=== PATIENT | male | born 1940 | race Caucasian/White ===

== ENCOUNTER 2017-09-28 07:32 | Day surgery (SDC) | payer OTHER ==
[~2017-09-28] VITALS: Ht 167.6 cm; Wt 96.7 kg
[~2017-09-28 07:32] MED LIST: ASPI81CH PO; ASPI81EC PO; BUDE6HFA INH; CARV6.25 PO; CLON.1 PO; CLOP75 PO; FURO40 PO; GLIM2; GLIM2 PO; INSULANPEN SC; MAGNESIUM CHLORIDE 64 MG; METF500 PO; OLME20 PO; OMEP20ER PO; PIOG30 PO; POTCHL10ER PO; SIMV40 PO; TROSPIUM CHLORI20 MG PO
[2017-09-28] MEDS ORDERED: METF500C PO (08:09)
[2017-09-28] MEDS ORDERED: BICA50 (08:10)
[2017-09-28] MEDS ORDERED: POTA10T PO (08:10)
[2018-07-04] MEDS ORDERED: MAGOXI400 PO (10:57)
[2018-07-04] MEDS ORDERED: XTANDI40 MG PO (11:04)
[2018-07-05] MEDS ORDERED: ASPI81CH PO (13:27)
[2018-07-05] MEDS ORDERED: ATOR80 PO (13:31)
[2018-07-05] MEDS ORDERED: Humalog100 UNIT/1 SC (13:31)
== END 2017-09-28 09:26 | disposition home or self-care (01) ==
LOC: ORSCSDS 07:32
PROVIDERS: Ophthalmology
PROC: 08RK3JZ Replacement of Left Lens with Synthetic Substitute, Percutaneous Approach (ICD-10-PCS; principal; 2017-09-28 09:00)
DX: H25.12 Age-related nuclear cataract, left eye (principal); E11.9 Type 2 diabetes mellitus without complications; I10 Essential (primary) hypertension; J44.9 Chronic obstructive pulmonary disease, unspecified; Z79.01 Long term (current) use of anticoagulants; Z79.4 Long term (current) use of insulin; Z79.899 Other long term (current) drug therapy
CPT/HCPCS: 82947; J2250; J3010; J3301; V2632

== ENCOUNTER 2018-09-27 16:45 | Emergency (ER) | payer OTHER ==
[~2018-09-27] VITALS: Ht 167.6 cm; Wt 90.7 kg
[~2018-09-27 16:45] MED LIST changes: +ATOR80 PO; +BICA50; +Humalog100 UNIT/1 SC; +MAGOXI400 PO; +METF500C PO; +POTA10T PO; +XTANDI40 MG PO
[2018-09-27 17:32] LABS: BASOPHILS ABSOLUTE AUTO 0.05 K/mm3 (0.00-0.23); BASOPHILS PERCENT AUTO 1 % (0-2); EOSINOPHILS ABSOLUTE AUTO 0.35 K/mm3 (0.00-0.68); EOSINOPHILS PERCENT AUTO 4 % (0-6); Hematocrit 36.5 % (37.0-53.0); Hemoglobin 12.7 g/dL (13.5-17.5); IMMATURE GRAN ABSOLUTE AUTO 0.03 K/mm3 (0.00-0.10); IMMATURE GRAN PERCENT AUTO 0 % (0-1); LYMPHOCYTES ABSOLUTE AUTO 2.63 K/mm3 (0.84-5.20); LYMPHOCYTES PERCENT AUTO 29 % (21-46); MONOCYTES ABSOLUTE AUTO 0.68 K/mm3 (0.16-1.47); MONOCYTES PERCENT AUTO 8 % (4-13); Mean Corpuscular HGB 34.2 pg (26.0-34.0); Mean Corpuscular HGB Conc 34.8 g/dL (31.5-36.5); Mean Corpuscular Volume 98 fL (80-100); Mean Platelet Volume 11.6 fL (9.1-12.4); NEUTROPHILS ABSOLUTE AUTO 5.29 K/mm3 (1.96-9.15); NEUTROPHILS PERCENT AUTO 59 % (41-73); Platelet Count 303 K/mm3 (150-400); RDW Coefficient Variation 12.7 % (11.7-14.2); RDW Standard Deviation 45.6 fL (35.1-46.3); Red Blood Cell Count 3.71 M/mm3 (4.30-5.90); White Blood Cell Count 9.03 K/mm3 (4.00-11.30)
[2018-09-27 17:48] LABS: Albumin, Blood 3.3 g/dL (3.4-5.0); Albumin/Globulin Ratio 0.8 (0.8-1.8); Bilirubin, Total 0.4 mg/dL (0.1-1.0); Bun/Creatinine Ratio 18.6 (12.0-20.0); Calcium, Blood 8.7 mg/dL (8.5-10.1); Creatinine, Blood 1.29 mg/dL (0.60-1.20); Globulin, Blood 4.4 g/dL (2.2-4.0); Total Protein, Blood 7.7 g/dL (6.4-8.2)
[2018-09-27] MEDS ORDERED: SIMV40 PO (18:22)
[2018-09-27 19:21] LABS: Magnesium, Blood 1.9 mg/dL (1.6-2.4); Troponin I <0.015 ng/mL (0.000-0.040)
[2018-10-02 14:08] LABS: LYME IGG/IGM AB <0.91 ISR (0.00-0.90)
== END 2018-09-27 20:35 | disposition home or self-care (01) ==
LOC: ER 16:45
PROVIDERS: Emergency Medicine; Physician Assistant
DX: R20.2 Paresthesia of skin (principal); Z79.899 Other long term (current) drug therapy; Z79.4 Long term (current) use of insulin; Z79.82 Long term (current) use of aspirin; I10 Essential (primary) hypertension; E11.9 Type 2 diabetes mellitus without complications; E78.00 Pure hypercholesterolemia, unspecified; I25.10 Atherosclerotic heart disease of native coronary artery without angina pectoris; J45.909 Unspecified asthma, uncomplicated; Z87.891 Personal history of nicotine dependence; Z85.46 Personal history of malignant neoplasm of prostate
CPT/HCPCS: 36415; 70450; 80053; 83735; 84443; 84484; 85025; 86618; 99284-25

== ENCOUNTER → 2019-06-01 | Outpatient (CLI) | payer OTHER | END | disposition home or self-care (01) | LOC: LAB SHORT 08:30 → LAB 08:30 → EDSTATUS 05-29 09:40 → LAB FUT 05-29 09:40 | DX: J31.0 Chronic rhinitis (principal) | CPT/HCPCS: 86335 ==

== ENCOUNTER → 2019-07-17 | Outpatient (CLI) | payer OTHER ==
[~2019-07-17] MED LIST changes: +AMLO10 PO; -CARV6.25 PO; +Coreg12.5 MG PO; +FLUTICASONE-SA1 EAC2 INH; +LUPRON PO; +NASACORT10.8 ML NS; +Omega 3 1,0001 EACH PO
== END | disposition home or self-care (01) ==
LOC: LAB 11:48 → LAB SHORT 11:48
DX: J31.0 Chronic rhinitis (principal); H81.10 Benign paroxysmal vertigo, unspecified ear
CPT/HCPCS: 86335

== ENCOUNTER 2019-07-22 16:08 | Observation (INO) | payer OTHER ==
[~2019-07-22] VITALS: Ht 165.1 cm; Wt 89.4 kg
[~2019-07-22 16:08] MED LIST changes: -AMLO10 PO; -BUDE6HFA INH; -CLON.1 PO; -CLOP75 PO; -Coreg12.5 MG PO; -FLUTICASONE-SA1 EAC2 INH; -FURO40 PO; -GLIM2 PO; -Humalog100 UNIT/1 SC; -INSULANPEN SC; -LUPRON PO; -METF500C PO; -NASACORT10.8 ML NS; -OLME20 PO; -OMEP20ER PO; -Omega 3 1,0001 EACH PO; -POTA10T PO; -TROSPIUM CHLORI20 MG PO; -XTANDI40 MG PO
[2019-07-22 16:55] LABS: BASOPHILS ABSOLUTE AUTO 0.04 K/mm3 (0.00-0.23); BASOPHILS PERCENT AUTO 1 % (0-2); EOSINOPHILS ABSOLUTE AUTO 0.21 K/mm3 (0.00-0.68); EOSINOPHILS PERCENT AUTO 3 % (0-6); Hematocrit 33.9 % (37.0-53.0); Hemoglobin 11.6 g/dL (13.5-17.5); IMMATURE GRAN ABSOLUTE AUTO 0.03 K/mm3 (0.00-0.10); IMMATURE GRAN PERCENT AUTO 0 % (0-1); LYMPHOCYTES ABSOLUTE AUTO 2.12 K/mm3 (0.84-5.20); LYMPHOCYTES PERCENT AUTO 26 % (21-46); MONOCYTES ABSOLUTE AUTO 0.65 K/mm3 (0.16-1.47); MONOCYTES PERCENT AUTO 8 % (4-13); Mean Corpuscular HGB 33.9 pg (26.0-34.0); Mean Corpuscular HGB Conc 34.2 g/dL (31.5-36.5); Mean Corpuscular Volume 99 fL (80-100); Mean Platelet Volume 12.2 fL (9.1-12.4); NEUTROPHILS ABSOLUTE AUTO 4.98 K/mm3 (1.96-9.15); NEUTROPHILS PERCENT AUTO 62 % (41-73); Platelet Count 287 K/mm3 (150-400); RDW Coefficient Variation 12.6 % (11.7-14.2); RDW Standard Deviation 45.4 fL (35.1-46.3); Red Blood Cell Count 3.42 M/mm3 (4.30-5.90); White Blood Cell Count 8.03 K/mm3 (4.00-11.30)
[2019-07-22 17:09] LABS: International Normalized Ratio 0.95; Prothrombin Time Results 10.1 Sec (9.7-11.5)
[2019-07-22 17:13] LABS: Albumin, Blood 3.2 g/dL (3.4-5.0); Albumin/Globulin Ratio 0.7 (0.8-1.8); Bilirubin, Total 0.4 mg/dL (0.1-1.0); Bun/Creatinine Ratio 21.4 (12.0-20.0); Calcium, Blood 8.9 mg/dL (8.5-10.1); Creatinine, Blood 1.26 mg/dL (0.60-1.20); Globulin, Blood 4.4 g/dL (2.2-4.0); Potassium, Blood 4.1 mmol/L (3.5-5.5); Total Protein, Blood 7.6 g/dL (6.4-8.2)
[2019-07-22] MEDS ORDERED: CLON.1 PO (17:15)
[2019-07-22] MEDS ORDERED: OMEP20ER PO (17:16)
[2019-07-22] MEDS ORDERED: Coreg12.5 MG PO (17:16)
[2019-07-22] MEDS ORDERED: METF500C PO (17:17)
[2019-07-22] MEDS ORDERED: POTA10T PO (17:18)
[2019-07-22] MEDS ORDERED: OLME20 PO (17:19)
[2019-07-22] MEDS ORDERED: FURO40 PO (17:20)
[2019-07-22] MEDS ORDERED: GLIM2 PO (17:25)
[2019-07-22] MEDS ORDERED: BUDE6HFA INH (17:25)
[2019-07-22] MEDS ORDERED: INSULANPEN SC (17:26)
[2019-07-22] MEDS ORDERED: CLOP75 PO (17:26)
[2019-07-22] MEDS ORDERED: SIMV40 PO (17:27)
[2019-07-22] MEDS ORDERED: TROSPIUM CHLORI20 MG PO (17:27)
[2019-07-22] MEDS ORDERED: XTANDI40 MG PO (17:27)
[2019-07-22] MEDS ORDERED: Humalog100 UNIT/1 SC (17:30)
[2019-07-22] MEDS ORDERED: LUPRON PO (17:33)
[2019-07-22] MEDS ORDERED: Omega 3 1,0001 EACH PO (22:45)
[2019-07-22] MEDS ORDERED: NASACORT10.8 ML NS (22:49)
[2019-07-23 04:21] LABS: BASOPHILS ABSOLUTE AUTO 0.04 K/mm3 (0.00-0.23); BASOPHILS PERCENT AUTO 1 % (0-2); EOSINOPHILS ABSOLUTE AUTO 0.24 K/mm3 (0.00-0.68); EOSINOPHILS PERCENT AUTO 3 % (0-6); Hematocrit 30.3 % (37.0-53.0); Hemoglobin 10.3 g/dL (13.5-17.5); IMMATURE GRAN ABSOLUTE AUTO 0.03 K/mm3 (0.00-0.10); IMMATURE GRAN PERCENT AUTO 0 % (0-1); LYMPHOCYTES ABSOLUTE AUTO 2.66 K/mm3 (0.84-5.20); LYMPHOCYTES PERCENT AUTO 32 % (21-46); MONOCYTES PERCENT AUTO 8 % (4-13); Mean Corpuscular HGB 33.1 pg (26.0-34.0); Mean Corpuscular Volume 97 fL (80-100); Mean Platelet Volume 12.5 fL (9.1-12.4); NEUTROPHILS ABSOLUTE AUTO 4.66 K/mm3 (1.96-9.15); NEUTROPHILS PERCENT AUTO 56 % (41-73); Platelet Count 232 K/mm3 (150-400); RDW Coefficient Variation 12.5 % (11.7-14.2); RDW Standard Deviation 43.9 fL (35.1-46.3); Red Blood Cell Count 3.11 M/mm3 (4.30-5.90); White Blood Cell Count 8.33 K/mm3 (4.00-11.30)
[2019-07-23 04:40] LABS: Bun/Creatinine Ratio 20.8 (12.0-20.0); Calcium, Blood 8.7 mg/dL (8.5-10.1); Creatinine, Blood 1.25 mg/dL (0.60-1.20); Potassium, Blood 3.5 mmol/L (3.5-5.5)
--- NOTE | 2019-07-23 05:19 | NUR ---
SHIFT SUMMARY: A/O X 4. ARRIVED ON MEDICAL FLOOR AT 2100 ACCOMPANIED BY . PIVOT T/V WITH SBA TO FROM STRETCHER TO BED. NEURO CHECKS WNL. SLIGHT WEAKNESS NOTED ON R UPPER AND LOWER EXTREMETIES COMPARED TO LEFT- CONSISTENT WITH PT REPORT OF HISTORICAL STROKE DEFICIT. STATES WORSENED WEAKNESS AND SLURRED SPEECH THAT RASHEED HIM TO HOSPITAL HAS RESOLVED. NO FACIAL DROOPING. SPEECH CLEAR AND CONCISE. BED LOW, CALL LIGHT IN REACH. ENCOURAGED PT TO CALL FOR ASSSIT TO USE RESTROOM. URINAL PLACED AT BEDSIDE. NO COMPLAINTS AT THIS TIME. HAS RESTED QUIETLY MUCH OF THE NIGHT.
[2019-07-23] MEDS ORDERED: AMLO10 PO (10:31)
[2019-07-23] MEDS ORDERED: FLUTICASONE-SA1 EAC2 INH (10:33)
--- NOTE | 2019-07-23 11:23 | NUR ---
Echocardiogram completed.
--- NOTE | 2019-07-23 13:41 | NUR ---
PT DISCHARGED AT 1130 WITH TO TRANSPORT. ALL PAPERS REVIEWED AND EDUCATIONAL MATERIAL SENT. ALL PERSONAL BELONGINGS COLLECTED AND PT ESCORTED VIA WHEEL CHAIR TO N ENTRANCE. NO DISTRESS NOTED.
== END 2019-07-23 11:33 | disposition home or self-care (01) ==
LOC: ER 16:08 → MEDS 16:09
PROVIDERS: Physician Assistant; ADMIT Internal Medicine
DX: G45.9 Transient cerebral ischemic attack, unspecified (principal); I16.0 Hypertensive urgency; I25.10 Atherosclerotic heart disease of native coronary artery without angina pectoris; I12.9 Hypertensive chronic kidney disease with stage 1 through stage 4 chronic kidney disease, or unspecified chronic kidney disease; E11.22 Type 2 diabetes mellitus with diabetic chronic kidney disease; N18.3 Chronic kidney disease, stage 3 (moderate); I77.89 Other specified disorders of arteries and arterioles; E78.5 Hyperlipidemia, unspecified; D64.9 Anemia, unspecified; J45.909 Unspecified asthma, uncomplicated; Z87.891 Personal history of nicotine dependence; Z79.899 Other long term (current) drug therapy; Z79.01 Long term (current) use of anticoagulants; Z79.4 Long term (current) use of insulin; Z85.46 Personal history of malignant neoplasm of prostate
CPT/HCPCS: 36415; 70450; 70551; 80048; 80053; 82947; 85025; 85610; 93005; 93010; 93306; 93880; 97161; 99285-25; C9113; J1644

== ENCOUNTER 2020-01-25 11:14 | Inpatient (IN) | payer OTHER ==
[~2020-01-25] VITALS: Ht 180.3 cm; Wt 117.9 kg
[~2020-01-25 11:14] MED LIST changes: +ALBU3IS; +AMLO10 PO; +Amaryl2 MG; +BUDE6HFA INH; +CLON.1 PO; +CLOP75 PO; +Coreg12.5 MG PO; +FLUTICASONE-SA1 EAC1 INH; +FLUTICASONE-SA1 EAC2 INH; +FURO40 PO; +GLIM2 PO; +GLIMEPIRIDE4 MG PO; +Humalog100 UNIT/1 SC; +INSULANPEN SC; +LUPRON DEPOT3.75 MG; +LUPRON PO; +METF500C PO; +NASACORT10.8 ML NS; +OLME20 PO; +OMEP20ER PO; +Omega 3 1,0001 EACH PO; +POTA10T PO; +TROSPIUM CHLORI20 MG; +TROSPIUM CHLORI20 MG PO; +XTANDI40 MG PO
[2020-01-25] MEDS ORDERED: ASPIR 8181 M1 PO (11:50)
[2020-01-25] MEDS ORDERED: Zocor10 MG PO (11:50)
[2020-01-25 11:51] LABS: BASOPHILS ABSOLUTE AUTO 0.04 K/mm3 (0.00-0.23); BASOPHILS PERCENT AUTO 1 % (0-2); EOSINOPHILS ABSOLUTE AUTO 0.16 K/mm3 (0.00-0.68); EOSINOPHILS PERCENT AUTO 2 % (0-6); Hematocrit 34.3 % (37.0-53.0); Hemoglobin 10.9 g/dL (13.5-17.5); IMMATURE GRAN ABSOLUTE AUTO 0.03 K/mm3 (0.00-0.10); IMMATURE GRAN PERCENT AUTO 0 % (0-1); LYMPHOCYTES ABSOLUTE AUTO 1.64 K/mm3 (0.84-5.20); LYMPHOCYTES PERCENT AUTO 22 % (21-46); MONOCYTES ABSOLUTE AUTO 0.57 K/mm3 (0.16-1.47); MONOCYTES PERCENT AUTO 8 % (4-13); Mean Corpuscular HGB 32.4 pg (26.0-34.0); Mean Corpuscular HGB Conc 31.8 g/dL (31.5-36.5); Mean Corpuscular Volume 102 fL (80-100); Mean Platelet Volume 12.8 fL (9.1-12.4); NEUTROPHILS ABSOLUTE AUTO 4.92 K/mm3 (1.96-9.15); NEUTROPHILS PERCENT AUTO 67 % (41-73); Platelet Count 223 K/mm3 (150-400); RDW Standard Deviation 51.8 fL (35.1-46.3); Red Blood Cell Count 3.36 M/mm3 (4.30-5.90); White Blood Cell Count 7.36 K/mm3 (4.00-11.30)
[2020-01-25] MEDS ORDERED: MAGNESIUM OXID500 MG PO (11:52)
[2020-01-25] MEDS ORDERED: BUDE6HFA INH (11:53)
[2020-01-25 12:07] LABS: International Normalized Ratio 1.04; Prothrombin Time Results 11.1 Sec (9.7-11.5)
[2020-01-25 12:30] LABS: Albumin, Blood 2.7 g/dL (3.4-5.0); Albumin/Globulin Ratio 0.6 (0.8-1.8); Bilirubin, Total 0.6 mg/dL (0.1-1.0); Bun/Creatinine Ratio 29.6 (12.0-20.0); Creatinine, Blood 1.42 mg/dL (0.60-1.20); Globulin, Blood 4.6 g/dL (2.2-4.0); Total Protein, Blood 7.3 g/dL (6.4-8.2)
[2020-01-25 14:44] LABS: Source, Urine Voided
[2020-01-25 14:48] LABS: Bilirubin, Urine Neg (Neg); Blood, Urine Neg (Neg); Glucose Qualitative, Urine Neg (Neg); Ketones, Urine Neg (Neg); Leukocyte Esterase, Urine Neg (Neg); Nitrite, Urine Neg (Neg); Protein, Urine Neg (Neg); Specific Gravity, Urine 1.015 (1.003-1.022); Urobilinogen, Urine NORM (Normal)
[2020-01-25 14:54] LABS: Appearance, Urine Clear (Clear); Color, Urine Yellow (P-Yellow)
--- NOTE | 2020-01-25 15:56 | NUR ---
pt arrived to pcu 4 via gurney from ED. report from Deidre CANALES. pt is awake, able to stand and transfer to bed with sba, he is unable to answer questions, like do you have a h/a, just shakes his head, word salad at times, mostly able to follow commands, right assistant grocery store manager seems slightly weaker than left, unable to follow directions on df and ext. gayla, lungs are clear in [place], dim in bases, indicates feeling a bit sob, but isn't clear, sats are 97%, v.s. stable, afebrile, iv site is clear s.l., btx4, abd flat soft nontender, has been using the urinal in the ED, skin c/w/d, moves feet, can ambulate with a walker, gayla, no facial deficit, oriented to room layout and call light, call light in reach.
--- NOTE | 2020-01-25 17:41 | NUR ---
pt sitting up on the side of the bed eating dinner, states he is doing ok, no acute changes. call light in reach.
[2020-01-26 04:10] LABS: BASOPHILS ABSOLUTE AUTO 0.04 K/mm3 (0.00-0.23); BASOPHILS PERCENT AUTO 1 % (0-2); EOSINOPHILS ABSOLUTE AUTO 0.19 K/mm3 (0.00-0.68); EOSINOPHILS PERCENT AUTO 2 % (0-6); Hematocrit 32.8 % (37.0-53.0); Hemoglobin 10.7 g/dL (13.5-17.5); IMMATURE GRAN ABSOLUTE AUTO 0.02 K/mm3 (0.00-0.10); IMMATURE GRAN PERCENT AUTO 0 % (0-1); LYMPHOCYTES ABSOLUTE AUTO 2.43 K/mm3 (0.84-5.20); LYMPHOCYTES PERCENT AUTO 30 % (21-46); MONOCYTES ABSOLUTE AUTO 0.73 K/mm3 (0.16-1.47); MONOCYTES PERCENT AUTO 9 % (4-13); Mean Corpuscular HGB 32.6 pg (26.0-34.0); Mean Corpuscular HGB Conc 32.6 g/dL (31.5-36.5); Mean Corpuscular Volume 100 fL (80-100); Mean Platelet Volume 12.4 fL (9.1-12.4); NEUTROPHILS ABSOLUTE AUTO 4.73 K/mm3 (1.96-9.15); NEUTROPHILS PERCENT AUTO 58 % (41-73); Platelet Count 259 K/mm3 (150-400); Red Blood Cell Count 3.28 M/mm3 (4.30-5.90); White Blood Cell Count 8.14 K/mm3 (4.00-11.30)
[2020-01-26 04:27] LABS: Bun/Creatinine Ratio 28.4 (12.0-20.0); Calcium, Blood 8.6 mg/dL (8.5-10.1); Creatinine, Blood 1.48 mg/dL (0.60-1.20); Potassium, Blood 4.5 mmol/L (3.5-5.5)
--- NOTE | 2020-01-26 05:31 | NUR ---
SHIFT SUMMARY PT CONFUSED; EXPRESSES FRUSTRATION THAT HE CANNOT ARTICULATE HIS THOUGHTS; HE USUALLY RESPONDS W/ "OKAY"; ASSISTED PT W/ PHONE CALL TO FAMILY MEMBER AT START OF SHIFT; SBA IN ROOM FOR BATHROOM PRIVILEDGES; NO GAIT DISTURBANCES NOTED; LR GTT @75 STARTED; EDUCATED GRAPE CUTTER LIGHT AND REORIENTED TO ROOM NEEDED; VSS; O2 SATS >94 ON RA; SAT IN RECLINER MOST OF SHIFT; SLEPT ON AND OFF FOR SHORT PERIODS; CALL LIGHT IN REACH; BED IN LOWEST POSITION; WILL CONTINUE TO MONITOR CLOSELY UNTIL HAND OFF TO DAY SHIFT RN.
--- NOTE | 2020-01-26 15:03 | NUR ---
PCU TRANSFER SUMMARY PATIENT LEFT UNIT VIA WHEELCHAIR TO MEDICAL ROOM 342. PATIENT DENIED PAIN T/O SHIFT. RESP E/U AT REST ON ROOM AIR. MILD SOB NOTED WITH EXCERTION AND BLE SWELLING NOTED IN CALFS AND FEET. PATIENT ALERT AND ORIENTED TO SELF, AND LOCATION - PATIENT HAS APHASIA NOTED. PT/OT/ST - TOLERATING ALL WELL. INDEPENDENT TO BATHROOM - CHAIR ALARM ON. REPORTED TO [facility] RN. BELONGINGS SENT TO MEDICAL FLOOR WITH PATIENT.
--- NOTE | 2020-01-26 19:17 | NUR ---
SHIFT SUMMARY: PATIENT XFR FROM PCU-04 THIS SHIFT. ACUTE CVA; EXPRESSIVE & RECEPTIVE APHASIA; ALERT; ORIENTED TO SELF, , LOCATION; PATIENT CONFUSED. DYSPHAGIA; PO MEDS WHOLE IN APPLE SAUCE; PUREE DIET. TELE IN PLACE; SR c 1DEG BLOCK @ 60. PT EXPECTED TO REMAIN IN HOSPITAL FOR NOW, PER Andre NOTE. REPORT GIVEN TO ONCOMING RN.
--- NOTE | 2020-01-27 03:25 | NUR ---
SHIFT SUMMARY PATIENT HAD NO ACUTE CHANGES OBSERVED. AXOX TO SELF: NO YEAR, PRESIDENT AND FOR LOCATION REPORTED 'S OFFICE. KNOWS . VSS/AFEBRILE. DENIES PAIN AND N/V. SOB X ONE WHEN UP TO BR WITH ONE ASSIST AND RECOVERED QUICKLY SITTING ON SIDE OF BED. ON RA. IMPULSIVE WITH BED/CHAIR EXITS AND ALARM ACTIVATED 4-6 X'S T/O SHIFT. PATIENT UP TO USE BR. CBG 216. PIV REMAINS INTACT. GUEST SERVICES ASSOCIATE REPORTS NSR 61. NO IV ACCESS. EXPRESSIVE ASPHAGIA. CALL LIGHT IN REACH. BED IN LOWEST POSITION AND ALARM ACTIVATED. WILL CONTINUE TO MONITOR UNTIL DAY SHIFT NURSE ASSUMES CARE.
[2020-01-27 05:05] LABS: Hematocrit 34.4 % (37.0-53.0); Mean Corpuscular HGB 32.4 pg (26.0-34.0); Mean Corpuscular Volume 101 fL (80-100); Mean Platelet Volume 12.9 fL (9.1-12.4); Platelet Count 227 K/mm3 (150-400); RDW Coefficient Variation 13.8 % (11.7-14.2); RDW Standard Deviation 50.5 fL (35.1-46.3); White Blood Cell Count 7.44 K/mm3 (4.00-11.30)
[2020-01-27 05:32] LABS: Bun/Creatinine Ratio 28.6 (12.0-20.0); Calcium, Blood 8.8 mg/dL (8.5-10.1); Creatinine, Blood 1.47 mg/dL (0.60-1.20); Potassium, Blood 4.3 mmol/L (3.5-5.5)
--- NOTE | 2020-01-27 19:29 | NUR ---
SHIFT SUMMARY: NO ACUTE CHANGES TO REPORT THIS SHIFT. PT ALERT; ORIENTED TO SELF; CALM AND COOPERATIVE WITH CARE. NO C/O PAIN THIS SHIFT. HX MULTIPLE CVAs; EXPRESSIVE APHASIA & DYSPHAGIA. TELE IN PLACE; SR @ 61 PER CUSTOMS OPENER VERIFIER PACKER. OCC CONFUSION, IMPULSIVE; CHAIR & BED ALARMS ON FOR SAFETY. EXPECTED D/C TO SNF SATURDAY 01/27. REPROT GIVEN TO ONCOMING RN.
--- NOTE | 2020-01-28 03:17 | NUR ---
SHIFT SUMMARY PATIENT HAD NO ACUTE CHANGES. AXO TO SELF. SITTING IN CHAIR AT SHIFT CHANGE WITH ALARM ACTIVATED. VSS/AFEBRILE. DENIES PAIN, SOB, AND N/V. CBG 254. PATIENT EDUCATOR REPORTS SB58. ABLE TO HAVE LIMITED TALK ABOUT PLAYING SPORTS: BASEBALL, FOOTBALL, AND BASKETBALL. COOPERATIVE WITH CARE. BED ALARM EXITS X THREE TO USE BR. CALL LIGHT IN REACH. BED IN LOWEST POSITION. WILL CONTINUE TO MONITOR UNTIL DAY SHIFT NURSE ASSUMES CARE.
[2020-01-28 05:37] LABS: Bun/Creatinine Ratio 30.3 (12.0-20.0); Calcium, Blood 8.2 mg/dL (8.5-10.1); Creatinine, Blood 1.45 mg/dL (0.60-1.20); Potassium, Blood 4.5 mmol/L (3.5-5.5)
[2020-01-28] MEDS ORDERED: ASPIR 8181 M1 PO (13:09)
[2020-01-28] MEDS ORDERED: ZOCOR20 MG PO (14:33)
--- NOTE | 2020-01-28 15:18 | NUR ---
Pt sitting in chair upon arrival. Difficult to assess Pt's orientation due to expressive aphasia. Pt denies pain and nausea at this time. Pt reports dyspnea with exertion. Due to Pt's expressive aphasia visit was short. Pt is agreeable with plan to discharge home this afternoon. Spoke with Bedside RN Juliann and discussed case. Plan is for Pt to discharge this afternoon with home health. Spoke with Dr Hernández and discussed case. Called and spoke with Pt's and daughter in law. Discussed plan and answered questions. Engaged in therapeutic conversation regarding Advanced Care Planning. Educated on the importance of planning for the future and developing multiple plans with PCP and Chief Relay Tester regarding disease process. Suggested questions and topics to discuss with PCP and specialists. Family expresses appreciation of call and report no other concerns at this time. Provided Palliative Care contact information and instructed to call with any questions or concerns. Palliative Care will remain available.
--- NOTE | 2020-01-28 17:26 | NUR ---
DISCHARGED TO HOME AT 1715 WITH HH TO FOLLOW. HE WAS VERY HAPPY TO GO HOME. HE HAD HIS BELONGINGS AND INSTRUCTIONS. I GAVE ALL INSTRUCTIONS TO HIS , SON AND [id number] OVER SPEAKER PHONE. HE HAD HIS BARIUM SWLALLOW THIS AM. HE LATER WORKED WITH OT AND ST. HE HAD NO COMPLAINTS. HE WAS OX2 AND FOLLOWED INSTRUCTIONS WELL. HH WILL WORK WITH HIM AT HOME.
== END 2020-01-28 17:11 | DRG 65 ==
LOC: ER 11:14 → MEDS 15:00 → PCU 15:00 → MEDS 01-26 14:56 → ENPENDDIS 01-28 11:24 → MEDS 01-28 16:03
PROVIDERS: Emergency Medicine; Internal Medicine; ADMIT Internal Medicine
DX: I63.9 Cerebral infarction, unspecified (principal); I13.0 Hypertensive heart and chronic kidney disease with heart failure and stage 1 through stage 4 chronic kidney disease, or unspecified chronic kidney disease; N17.9 Acute kidney failure, unspecified; R13.10 Dysphagia, unspecified; R47.1 Dysarthria and anarthria; N18.3 Chronic kidney disease, stage 3 (moderate); I50.9 Heart failure, unspecified; E11.22 Type 2 diabetes mellitus with diabetic chronic kidney disease; Z79.4 Long term (current) use of insulin; Z85.46 Personal history of malignant neoplasm of prostate; E78.5 Hyperlipidemia, unspecified; J44.9 Chronic obstructive pulmonary disease, unspecified
CPT/HCPCS: 36415; 70450; 70551; 71045; 74220; 80048; 80053; 81003; 82947; 83880; 85025; 85027; 85610; 85730; 92507; 92523; 92610; 93005; 93010; 94640; 94760; 97110; 97162; 97166; 97530; 97535; 99285-25; A9270-GY; C8929; J1650; J7120

== ENCOUNTER 2020-02-21 06:54 | Day surgery (SDC) | payer OTHER ==
[~2020-02-21] VITALS: Ht 165.1 cm; Wt 81.0 kg
[~2020-02-21 06:54] MED LIST changes: +ASPIR 8181 M1 PO; +ENTRESTO 24 MG1 EACH PO; +Isosorbide Mono30 MG PO; +MAGNESIUM OXID500 MG PO; +OXYC5 PO; +ZOCOR20 MG PO; +Zocor10 MG PO
--- NOTE | 2020-02-21 13:02 | NUR ---
1250 Reivewed discharge instructions and gave information regarding upcoming CABG surgery. Reviewed medications (no changes at this time) and reviewed after care for puncture site to the right radial (arterial) and right brachial (venous). TR band removed and site cleaned adn cloth dot applied. Brachial dressing changed to a cloth dot also after being cleaned. assisting with dressing. White board reapplied to right radial and patient understands the limitations of not using the right wrist. All questions answered. All belongings gatheter by pateint and and patient discharged via wheelchair home at 1310.
== END 2020-02-21 13:10 | disposition home or self-care (01) ==
LOC: MHTC 06:54
PROC: B206YZZ Plain Radiography of Right and Left Heart using Other Contrast (ICD-10-PCS; principal; 2020-02-21)
PROC: 4A023N8 Measurement of Cardiac Sampling and Pressure, Bilateral, Percutaneous Approach (ICD-10-PCS; principal; 2020-02-21)
PROC: B201YZZ Plain Radiography of Multiple Coronary Arteries using Other Contrast (ICD-10-PCS; principal; 2020-02-21)
DX: I25.10 Atherosclerotic heart disease of native coronary artery without angina pectoris (principal); I13.0 Hypertensive heart and chronic kidney disease with heart failure and stage 1 through stage 4 chronic kidney disease, or unspecified chronic kidney disease; E11.22 Type 2 diabetes mellitus with diabetic chronic kidney disease; I50.9 Heart failure, unspecified; E78.5 Hyperlipidemia, unspecified; N18.3 Chronic kidney disease, stage 3 (moderate); J44.9 Chronic obstructive pulmonary disease, unspecified; E78.00 Pure hypercholesterolemia, unspecified; Z79.01 Long term (current) use of anticoagulants; Z79.899 Other long term (current) drug therapy; Z87.891 Personal history of nicotine dependence; Z79.4 Long term (current) use of insulin; Z79.82 Long term (current) use of aspirin
CPT/HCPCS: 82947; 93460; 99152; 99153; C1769; C1894; J1644; J2250; J3010; J7030; Q9967

== ENCOUNTER 2020-03-08 00:09 | Inpatient (IN) | payer OTHER ==
[~2020-03-08] VITALS: Ht 165.1 cm; Wt 80.1 kg
[~2020-03-08 00:09] MED LIST changes: -GLIMEPIRIDE4 MG PO; +HUMALOG100 UNIT/1 SC
[2020-03-08 00:29] LABS: Hematocrit 31.3 % (37.0-53.0); Hemoglobin 10.3 g/dL (13.5-17.5); Mean Corpuscular HGB 34.1 pg (26.0-34.0); Mean Corpuscular HGB Conc 32.9 g/dL (31.5-36.5); Mean Corpuscular Volume 104 fL (80-100); Platelet Count 207 K/mm3 (150-400); RDW Coefficient Variation 13.2 % (11.7-14.2); RDW Standard Deviation 50.6 fL (35.1-46.3); Red Blood Cell Count 3.02 M/mm3 (4.30-5.90); White Blood Cell Count 9.08 K/mm3 (4.00-11.30)
[2020-03-08 00:30] LABS: Mean Platelet Volume 13.3 fL (9.1-12.4)
[2020-03-08 00:52] LABS: Alanine Aminotransfer (ALT/SGP 13 U/L (12-78); Albumin, Blood 2.5 g/dL (3.4-5.0); Albumin/Globulin Ratio 0.5 (0.8-1.8); Alk Phos 140 U/L (50-136); Anion Gap 7 mmol/L (6-16); Aspartate Aminotrans (AST/SGOT 17 U/L (12-37); Bilirubin, Total 0.5 mg/dL (0.1-1.0); Blood Urea Nitrogen 58 mg/dL (8-24); Bun/Creatinine Ratio 38.7 (12.0-20.0); CHOL/HDL RATIO 3.8; CO2, Blood 23 mmol/L (21-32); Calcium, Blood 8.5 mg/dL (8.5-10.1); Chloride, Blood 109 mmol/L (98-108); Cholesterol 130 mg/dL (50-200); Globulin, Blood 4.7 g/dL (2.2-4.0); Glomerular Filtration Rate 48 (60-); Glucose, Blood 211 mg/dL (70-99); HDL Cholesterol 34 mg/dL (>39); Low Density Lipoprotein Chol 68 mg/dL (0-110); Magnesium, Blood 1.9 mg/dL (1.6-2.4); Sodium, Blood 139 mmol/L (136-145); Total Protein, Blood 7.2 g/dL (6.4-8.2); Triglycerides 140 mg/dL (30-160); Very Low Density Lipoprot Chol 28 mg/dL (6-32)
[2020-03-08 01:00] LABS: Troponin I 0.877 ng/mL (0.000-0.040)
--- NOTE | 2020-03-08 03:00 | NUR ---
PT ARRIVES TO ICU 3 FROM [facility] AT 0220. PT SLIGHTLY ANXIOUS AND RESPONDS WELL TO REASSURANCE AND REDIRECTION. REPORT RECEIVED AT BEDSIDE FROM CARRIER WASHER RN. DR PADILLA IN ROOM. VERBAL EDUCATION GIVEN TO PT CONCERNING RESTRICTIONS SECONDARY TO RADIAL ACCESS. PT IN A FIB WITH RVR. CHANGES BUNDLES FREQUENTLY. WILL REVIEW CHART AND PLAN OF CARE.
--- NOTE | 2020-03-08 04:00 | NUR ---
PT CONVERTS TO NORMAL SINUS RHYTHM WITH OCCASSIONAL PVC'S. BLOOD PRESSURES REMAIN WITH MAP > 60. CALL MADE TO DR PADILLA. ORDER TO HOLD AMIODARONE DRIP SECONDARY TO SPONTANEOUS CONVERSION. PT HAS DEMONSTRATED APHASIA SECONDARY TO RECENT CVA. TR BAND REMAINS WITHOUT OOZING OR HEMATOMA. REINFORCED TEACHING OF RESTRICTIONS. WILL CONTINUE TO MONITOR.
[2020-03-08 06:21] LABS: BASOPHILS ABSOLUTE AUTO 0.02 K/mm3 (0.00-0.23); BASOPHILS PERCENT AUTO 0 % (0-2); EOSINOPHILS ABSOLUTE AUTO 0.03 K/mm3 (0.00-0.68); EOSINOPHILS PERCENT AUTO 0 % (0-6); Hematocrit 29.4 % (37.0-53.0); Hemoglobin 9.7 g/dL (13.5-17.5); IMMATURE GRAN ABSOLUTE AUTO 0.04 K/mm3 (0.00-0.10); IMMATURE GRAN PERCENT AUTO 1 % (0-1); LYMPHOCYTES ABSOLUTE AUTO 1.31 K/mm3 (0.84-5.20); LYMPHOCYTES PERCENT AUTO 17 % (21-46); MONOCYTES ABSOLUTE AUTO 0.45 K/mm3 (0.16-1.47); MONOCYTES PERCENT AUTO 6 % (4-13); Mean Corpuscular Volume 103 fL (80-100); NEUTROPHILS ABSOLUTE AUTO 6.04 K/mm3 (1.96-9.15); NEUTROPHILS PERCENT AUTO 77 % (41-73); Platelet Count 188 K/mm3 (150-400); RDW Coefficient Variation 13.3 % (11.7-14.2); RDW Standard Deviation 50.4 fL (35.1-46.3); Red Blood Cell Count 2.85 M/mm3 (4.30-5.90); White Blood Cell Count 7.89 K/mm3 (4.00-11.30)
--- NOTE | 2020-03-08 06:30 | NUR ---
PT HAS BEEN UP TO BEDSIDE COMMODE WITH ONE PERSON ASSIST. PT HAS NO COMPLAINTS OF CHEST PAIN OR PRESSURE. NO FURTHER COMPLAINTS OF NAUSEA THAT WAS PRESENT ON ADMIT. MAINTAINS BLOOD PRESSURES WITH MAP > 60. WILL CONTINUE TO MONITOR PT AND WILL REPORT OFF TO ONCOMING RN.
[2020-03-08 06:40] LABS: Bun/Creatinine Ratio 42.8 (12.0-20.0); Calcium, Blood 8.7 mg/dL (8.5-10.1); Creatine Kinase MB 8.5 ng/mL (0.0-3.6); Creatine Kinase MB Index 8.5 (0.0-4.0); Creatinine, Blood 1.52 mg/dL (0.60-1.20); Potassium, Blood 4.1 mmol/L (3.5-5.5)
[2020-03-08 06:52] LABS: Troponin I 3.67 ng/mL (0.000-0.040)
--- NOTE | 2020-03-08 07:24 | NUR ---
BEGINNING OF SHIFT Assumed care of pt at 0700. Bedside report recieved from Everette CANALES. Pt A&O x 4. Answers questions. Verbalizes needs. Follows commands. Expressive aphasia noted. SR per monitor with occasional PVCs, approximately 7 per minute. HR 70s. BP stable. Pt has right radial site from angiogram. Site free of drainage, hematoma, bruising. Color, sensation, pulses capillary refill equal BUE. Site assessed with offgoing RNEverette. TR band in place, maximally deflated at 0707. Lungs clear t/o. SpO2 97% on room air. No cough noted. Bed in lowest position. Call light in reach. Pt denies need at this time.
--- NOTE | 2020-03-08 08:15 | NUR ---
CALL PLACED TO DR PADILLA Pt having 6/10 chest pain. Points to sternal region when describing pain location. Reports nausea. BP stable. HR stable. Pt reports shortness of breath. Clammy. Orders given to obtain EKG.
--- NOTE | 2020-03-08 09:03 | NUR ---
UPDATE EKG reviewed by Dr Retana. Provider states she will be in to see pt shortly.
--- NOTE | 2020-03-08 09:45 | NUR ---
DR SNOW IN TO SEE PT Provider states plan to treat GI, as pt is now poiting to gastric region as source of pain. Provider states xarelto to be held and heparin drip to be started at 1600, so pt is anticoagulated but can be taken back to the ammunition assembly i laborer if necessary. States to hold subcutaneous heparin. States to hold long acting nitrate and furosemide at this time. Will discuss BP at 1200 and evaluate if furosemide is appropriate.
--- NOTE | 2020-03-08 11:41 | NUR ---
UPDATE Pt states GI upset has been relieved. He feels much better. Pt eating breakfast at this time. AM meds late as they were held until pt no longer felt nauseous.
--- NOTE | 2020-03-08 11:49 | NUR ---
DR SNOW IN TO SEE PT Discussed BP. Although improved, no lasix to be given at this time. Will continue to closely reassess. Pt denies chest pain and shortness of breath at this time. Provider states she would like pt to remain in the ICU today.
--- NOTE | 2020-03-08 12:25 | NUR ---
Echocardiogram using 0.60ml of Definity contrast performed.
--- NOTE | 2020-03-08 14:00 | NUR ---
CALL PLACED TO DR SNOW Pt states he is feeling anxious. States he is afraid that if he falls asleep, he will not wake up. Discussed with pt. Attempted for verbal redirection. Ineffective. Pt continues to verbalize anxiety. Orders given for one time dose of xanax.
--- NOTE | 2020-03-08 16:08 | NUR ---
Call back Pt known to the is PC from previous contact. Pt provided space to discuss his kojo beliefs and current health. Pt able to converse, but does some word-searching at times. Pt has support from his shinto in [place] and has been 52 years to his spouse "February." Appears to be therapeutic for pt to talk about his baseball playing days with Sarath Aburto. He smiles at times remembering his past. Verbal prayer was offered on behalf of the pt. He verbalized gratitude for the visit.
--- NOTE | 2020-03-08 17:13 | NUR ---
SUMMARY Pt A&O x 3. Irritable and anxious, but cooperative with care. Pt has been bedfast since late this morning. Pt's chest pain resolved after receiving zofran and GI cocktail. No changes to TR site since initial assessment. TR band removed at 0815 and dressed with tegaderm. Pt on room air when awake but requires 2 LPM NC while sleeping. Will continue to closely monitor until care handoff and bedside report with oncoming RN.
--- NOTE | 2020-03-08 19:18 | NUR ---
ASSUMED CARE RECIEVED REPORT FROM PARKER JOHN. PT IS SITTING UP IN BED EATING DINNER. HE IS ALERT AND ORIENTED TO SELF, SITUATION, SURROUNDSINGS AND FAMILY. HE DENIES ANY CP, SOB, AND NAUSEA AT THE MOMENT. HE IS IN SINUS RHYTHM WITH A FIRST DEGREE BLOCK. BLOOD PRESSURE IS SOFT, BUT MAP > 60. HIS RIGHT RADIAL SITE LOOKS WNL, NO PAIN IN HAND, CAP REFILL < 3s, PALPABLE PULSE, AND NUMBNESS WAS PRESENT PRIOR TO EVENT. NO SIGNS OF BLEEDING OR HEMATOMA FORMATION. HE IS ON A HEPARIN GTTP AT 13 UNITS/KG/HR, WITH A DOSING WEIGHT OF 71 KG, AND A RATE OF 18.5 ML/HR, THIS WAS VERIFIED WITH ALVARO, MYSELF, AND THE ORDERS. BED LOW AND LOCKED. CALL LIGHT WITHIN REACH.
--- NOTE | 2020-03-08 23:05 | NUR ---
PT STRUGGLING WITH HIS SPEACH. HE WAS TRYING TO COMMUNICATE WITH ME THAT HE NEEDED TO GO TO THE BATHROOM, BUT WAS UNABLE TO GET THE WORDS OUT. HE SAID THINGS ABOUT "GAMES, CARDS, ETC...", BUT KEPT GETTING FRUSTRATED WHEN HE WAS UNABLE TO GET HIS POINT ACROSS. EVENTUALLY HE JUST STARTED TAKING HIS BLANKETS OFF AND WAS ABLE TO SAY HE NEEDED TO GO TO THE BATHROOM.
--- NOTE | 2020-03-08 23:46 | NUR ---
HYPOTENSION/PLACED CALL TO DR. PADILLA PT HAS BEEN HAVING LOW/SOFT BP ALL SHIFT, LAST TWO PRESSURES MAP WAS < 60. PT IS NOT SYMPTOMATIC: DENIES CP, SOB, AND NAUSEA. PT IS NOT DIAPHORETIC/CLAMMY OR COOL. AND PULSES ARE PRESENT/STRONG. DR. Boyle INSTRUCTED ME TO CHANGE BP CUFF TO THE FOREARM - WE WERE GETTING MORE ACCURATE PRESSURES THERE IN THE PAST. AND TO CONTINUE TO MONITOR FOR SYMPTOMATIC HYPOTENSION. WE MAY TRY LIGHT FLUIDS IF NEED BE. AND SHE WILL MAKE A CHANGE TO THE TIME ENTRESTO IS GIVEN, THIS HAPPENED LAST NIGHT TOO. BED LOW AND LOCKED. PT IS BACK TO SLEEP.
--- NOTE | 2020-03-09 02:02 | NUR ---
UPDATE NO MAJOR CHANGES. BP HAS BEEN ADEQUATE, MAP > 60. NO DIAPHORESIS, AND EXTREMETIES ARE WARM TO TOUCH. PT IS SLEEPING. VITALS ARE STABLE. BED LOW AND LOCKED. CALL LIGHT WITHIN REACH. PT IS MOVING INDEPENDENTLY IN BED.
--- NOTE | 2020-03-09 03:32 | NUR ---
UPDATE NOT ACUTE CHANGES. MAP REMAINS > 60, HE CONTINUES TO BE IN SINUS RHYTHM WITH RATE IN 60's. HE IS SLEEPING, NOT DIAPHORETIC, SKIN WARM TO TOUCH, STRONG PULSES, WITH CAP REFILL < 3s. RIGHT RADIAL SITE CONTINUES TO LOOK WNL. ARMBOARD REMAINS IN PLACE. PT REMAINS ON 1L NC. SAT'S HIGH 90'S.
--- NOTE | 2020-03-09 05:50 | NUR ---
SHIFT SUMMARY PT SLEPT MAJORITY OF NIGHT WITH NO ACUTE EVENTS. HE REMAINS ALERT AND ORIENTED X 3, AND CONTINUES TO STRUGGLE WITH HIS EXPRESSIVE APHASIA. HE IS NOW ON ROOM AIR, SATs IN MID TO HIGH 90s. MAP HAS MAINTAINED ABOVE 60, SINCE I CHANGED THE POSITIONING OF THE BP CUFF. AROUND 0400 HE WOKE UP, AND CONTINUED TO DENY CP, SOB, NAUSEA, AND ABD PAIN. HE IS NOT DIAPHORETIC OR CLAMMY, HIS SKIN IS WARM TO TOUCH. HE IS FAIRLY PALE, THOUGH. SWELLING REMAINS IN HIS FEET. RIGHT RADIAL SITE REMAINS WNL. NO COMPLICATIONS. BED LOW AND LOCKED. CALL LIGHT WITHIN REACH. PT IS CURRENTLY SLEEPING.
--- NOTE | 2020-03-09 07:15 | NUR ---
BEGINNING OF SHIFT Assumed care of pt at 0700. Report received from Radha CANALES. Pt A&O x 4. On room air. SR per monitor. BP stable. Denies chest pain or shortness of breath. Bed in lowest position. Call light in reach. Pt denies need at this time.
--- NOTE | 2020-03-09 13:30 | NUR ---
PLAN OF CARE DISCUSSED WITH DR MARIE Provider states he would like to stop entresto and coreg. States plan to start losartan and metoprolol. These meds to be started tomorrow as pt has had coreg and entresto today. States he would like BNP and troponin checked. States he has discussed these changes with Dr Patel. Provider also states concern about foods he saw on pt's lunch tray. Pt had meatloaf, gravy, and mashed potatoes on his meal tray. Ultimately, pt ate only about 10% of his lunch. This RN discussed pt's diet with paper products inspector, Dat, who will discuss likes and dislikes with the pt.
--- NOTE | 2020-03-09 14:34 | NUR ---
CALL PLACED TO DR MARIE Reported critical troponin. Provider states plan to diurese patient. 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
[2020-03-09 15:23] LABS: Creatine Kinase MB 41.7 ng/mL (0.0-3.6); Creatine Kinase MB Index 10.6 (0.0-4.0)
--- NOTE | 2020-03-09 16:48 | NUR ---
TRANSFER OF CARE TO RG RN No changes to initial assessment. Pt in room talking to family on the phone at this time.
--- NOTE | 2020-03-09 18:26 | NUR ---
SHIFT SUMMARY: NO ACUTE CHANGES SINCE ASSUMING CARE & PRIOR UPDATES BY ALVARO Valdez RN. PT REMAINS A&O, SLOW TO RESPOND & DIFFICULTY FINDING WORDS AT TIMES. LS ARE CLEAR T/O, PT ON 3L NC (HOME DOSE AT HS) W/ O2 SATS > 92%, OCCASIONAL DESATS WHILE SLEEPING. MONITOR SHOWS SB-SR W/ HR 50-60s. BP STABLE. PT HAS NO GI COMPLAINTS, VOIDS W/O DIFFICULTY. SKIN CONDITION OVERALL UNCHANGED & INTACT. WILL CONTINUE TO MONITOR & REPORT OFF TO ONCOMING RN.
--- NOTE | 2020-03-09 19:00 | NUR ---
ASSUMED CARE NOTE: ASSUMED CARE OF PT AT 1900, RECEVIED REPORT FROM RG CANALES. PT IS ALERT AND ORIENTEDX4. PT HAS EXPRESSIVE ASHASIA NOTED. PT IS ON 2L OF 02 VIA NC WITH SPO2 ABOVE 95% NO RESPRIATORY DISTRESS NOTED. PT IN SR WITH HR BETWEEN 58-65 BPM.VSS.HEPARIN INFUSING @ 15U/KG/HR, VERIFED WITH RG CANALES. BOWEL TONES HEARD IN ALL FOUR QUADRANTS. PT C/O HAVING LOOSE BOWEL MOVEMENTS. PT USES URINAL AT BEDSIDE. BED AT LOWEST LEVEL, CALL LIGHT WITHIN REACH. WILL CONTINUE TO MONITOR PT.
[2020-03-09 20:50] LABS: Creatine Kinase MB 33.7 ng/mL (0.0-3.6)
[2020-03-09 20:51] LABS: Creatine Kinase MB Index 9.4 (0.0-4.0)
--- NOTE | 2020-03-10 01:51 | NUR ---
UPDATE: PT HAVING SOFT PRESSURES. MAP OVER 65. PT SLEEPING. NO SIGNIFICANT CHANGES. WILL CONTINUE TO MONITOR. BED AT LOWEST LEVEL. CALL LIGHT WITHIN REACH
[2020-03-10 03:03] LABS: Creatine Kinase MB 23.9 ng/mL (0.0-3.6); Creatine Kinase MB Index 8.6 (0.0-4.0)
--- NOTE | 2020-03-10 03:20 | NUR ---
UPDATE: PT CONVERTED TO AFIB, HR IN THE LOW 50'S. PT IS SLEEPING.BP CONTUNUE TO BE SOFT.
--- NOTE | 2020-03-10 06:09 | NUR ---
SHIFT SUMMARY: NO SIGNIFICANT CHANGES. PT WAS ABLE TO SLEEP T/O SHIFT W/ NO DIFFICULTIES. VSS, AFEBRILE. PT BACK AND FORTH FROM SB TO AFIB T/O SHIFT. PT CURRENTLY IN A -FIB WITH HR IN THE 50'S. PT HAS DENIED CP T/O SHIFT.PT HEPARIN INFUSING @ 16U/KG/HR PER ORDER. PT HAD ONE INCONTINENT VOID, LINENS CHANGED. PT USING URINAL AT BEDSIDE WITH ASSISTANCE. PT USED BEDSIDE COMMODE, WITH 2 PERSON ASSISTANCE, FWW AND BSC. WILL CONTINUE TO MONITOR PT T/O SHIFT.
--- NOTE | 2020-03-10 08:15 | NUR ---
ASSUMED CARE OF PT AT O700 PRE BREAKFAST CBG WAS FOUND TO BE 52. PT WAS GIVEN A JUICE AND CBG RECHECKED, ONLY INCREASED TO 61, PT GIVEN ANOTHER JUICE AND PLACED CALL TO DR UGARTE TO CONFIRM NO PLANS FOR HEART CATH TODAY. GAVE OKAY FOR BREAKFAST TRAY TO BE GIVEN, REPEAT CBG WITH START OF BREAKFAST WAS 89. PT REPORTED THAT HE DIDN'T EAT MUCH DINNER LAST NOC AND DID RECEIVE LANTUS. PT WAS ALERT AND ORIENTED UPON INITIAL ASSSESSMENT. MONITOR SHOWED PT TO BE IN SINUS LI/RHYTHM WITH RATES HIGH 50'S-60'S. RADIAL ACCESS SITE C/D/I SOFT, NO HEMATOMA NOTED. PT HAS DENIED ANY CP.
[2020-03-10 08:19] LABS: Bun/Creatinine Ratio 38.2 (12.0-20.0); Calcium, Blood 8.4 mg/dL (8.5-10.1); Creatinine, Blood 1.57 mg/dL (0.60-1.20); Potassium, Blood 3.5 mmol/L (3.5-5.5)
--- NOTE | 2020-03-10 17:47 | NUR ---
SHIFT SUMMARY PT IS ALERT AND ORIENT, FOLLOWS COMMANDS AND HAS REMAINED CHEST PAIN FREE THROUGHOUT DAY. PT HAS TOLERATED UTILIZING BSC, SITTING UP IN CHAIR AND WORKING WITH PHYSICAL THERAPY. VITALS HAVE REMAINED STABLE PT IS IN A SINUS LI AT REST HR HIGH 50'S AND SINUS RHTYHM WHEN AWAKE IN 60'S. THIS EVENING WHILE USING THE BSC, PT WAS NOTED TO HAVE A FEW DROPS OF BRIGHT RED BLOOD FROM RECTUM. DR UGARTE NOTIFIED AND AWARE OF BLOOD, CONTINUE TO MONITOR AT THIS TIME PT HAS HISTORY OF HEMORRHOIDS. PT HAS CHANGED STATUS TO PCU PER DR. UGARTE.
--- NOTE | 2020-03-10 17:47 | NUR ---
Mr. Sandoval reports a strong kojo in God that brings him peace. He is active in his zoroastrianism community and feels well supported by friends/family. We prayed together for his family at his request. No concerns presented. I will remain available.
--- NOTE | 2020-03-10 19:30 | NUR ---
ASSUME CARE: REPORT RECIEVED FROM CAROLINE OFF GOING RN. MONITOR INTACT SHOWING SINUS LI /SINUR RHYTHM. HEART RATE 50'S-60'S. DENIES DISCOMFORT. R RADIAL SITE SOFT CLEAR. LUNG SOUNDS CLEAR UPPER LOBES WITH DECREASED SOUNDS IN THE BASES. RESPIRATIONS REGULAR AND EASY AT REST. O2 IN PLACE AT 2L/MIN SPO2 97% ABDOMEN SOFT WITH BOWEL SOUNDS FOUR QUADS. VOIDS ABHI URINE UP TO BSC WITH ASSIST. CONTINUE TO MONITOR AND REPORT CHANGE IN PATIENT CONDITION.
[2020-03-11 03:40] LABS: Hemoglobin 10.1 g/dL (13.5-17.5); Mean Corpuscular HGB Conc 32.6 g/dL (31.5-36.5); Mean Corpuscular Volume 104 fL (80-100); Mean Platelet Volume 12.8 fL (9.1-12.4); NRBC ABSOLUTE 0.02 K/mm3 (0.00-0.02); NRBC Auto 0.3 /100 WBC (0.0-0.2); Platelet Count 223 K/mm3 (150-400); RDW Coefficient Variation 14.2 % (11.7-14.2); RDW Standard Deviation 53.1 fL (35.1-46.3); Red Blood Cell Count 2.97 M/mm3 (4.30-5.90)
[2020-03-11 03:56] LABS: Bun/Creatinine Ratio 34.8 (12.0-20.0); Calcium, Blood 8.7 mg/dL (8.5-10.1); Creatinine, Blood 1.41 mg/dL (0.60-1.20); Potassium, Blood 3.6 mmol/L (3.5-5.5)
--- NOTE | 2020-03-11 05:03 | NUR ---
TRANSFER SUMMARY REPORT GIVEN MARIO HOWE RN WHO IS ASSUMING CARE. TRANSFER TO [CU 9 PER BED AWAKENS EASILY INFORMED OF TRANSFER. MONITOR INTACT SHOWING SINUS RHYTHM HEART RATE 60'S. LUNGS SOUNDS CLEAR UPPER LOBES WITH DECREASED SOUNDS IN THE BASES SPO2 94% ON 2L/M PER NASAL CANNULA. ABDOMEN SOFT WITH BOWEL SOUNDS FOUR QUADS. VOIDS ABHI URINE WITHOUT DIFFICULTY CONTINUE TO MONITOR AND REPORT CHANGE IN PATIENT CONDITION
--- NOTE | 2020-03-11 06:20 | NUR ---
TRANSFER RECEIVED PT FROM ICU AT 0510. AXO. NONLABORED BREATHING. DENIES CP/PRESSURE. PRESENTS WITH BASELINE EXPRESSIVE DYSPHAGIA PER REPORT. SLIGHT R SIDE DEFICIT IN STRENGTH BUT BARELY PERCEPTABLE. SR TO SB FOR HEART RHYTHM. VSS. LUNGS CLEAR TO DIM BILATERALLY. SP TR BAND TO R RIST, INTACT WITH OPSITE, NONTENDER TO PALP. LITTLE ECCHYMOSIS. PT ORIENTED TO ROOM, CALL LLIGHT, ETC. WILL CONTINUE TO MONITOR UNTIL SHIFT CHANGE.
--- NOTE | 2020-03-11 11:13 | NUR ---
Pt sitting in chair upon arrival. Pt reports a tolerable 5/10 pain in his lower leg. Pt appears mildy dyspneic. Pt's spouse present during visit. Engaged in theapeutic discussion regarding Advanced Care Planning. Spouse shows POLST they completed to this RN. Encouraged Pt and family to discuss concerns and questions regarding choices. Pt and family report little understanding and are open to education regarding POLST. Educated on life sustaining measures including risk factors and implications. Answered questions. Pt and spouse would like more time to consider choices. Provided new POLST for Pt to complete if choices are different from initial POLST. Started education on disease process and the importance of planning for the future as disease process takes its coarse. At this time collar shaper operator in to visit with Pt. This RN ended visit and instructed Palliative Care will F/U at a later time. Pt and spouse are agreeable. Spoke with Bedside PARKER Harmon and discussed case. Palliative Care will remain available.
--- NOTE | 2020-03-11 18:07 | NUR ---
PCU DAYSHIFT SUMMARY PATIENT ALERT AND ORIENTED TO SELF, LOCATION AND TIME/DATE. PATIENT DENIES ANY PAIN T/O SHIFT. RESP E/U ON ROOM AIR T/O SHIFT. PATIENT REMAIN IN SR TO SB IN THE 50-60'S T/O SHIFT. RIGHT RADIAL SITE WNL WITH NO S/SX OF BLEEDING NOTED. MD MARQUEZ TO ROOM TO DISCUSS CARE PLAN WITH PATIENT, PATIENTS DAUGHTER AND - DISCUSSION MADE TO GO BACK IN FOR HIGH RISK ANGIOGRAM ON 03/13 (TUESDAY). PATIENT INDEPENENT TO MINIMAL STANDBY IN ROOM. NO S/SX OF DISTRESS NOTED T/O SHIFT. WILL CONTINUE TO MONITOR AND REPORT TO NOC SHIFT RN.
--- NOTE | 2020-03-11 20:29 | NUR ---
ASSUMED CARE OF PATIENT AT APPROXIMATELY 1900 FROM JOSE Morillo RN. PATIENT ALERT AND ORIENTED X4; PATIENT FRUSTRATED WHEN NOT ABLE TO FORM WORDS AT TIMES; REPORTS FROM PREVIOUS CVA. PATIENT DENIES PAIN, NUMBNESS, TINGLING, DIZZINESS OR NAUSEA. NSR ON TELE; DENIES CP/PRESSURE; OXYEGN SATURATION ABOVE 90% ON ROOM AIR OR 2LPM VIA NC NOC (BASELINE). RIGHT RADIAL SITE RECOVERED; ANGIO PLANNED FOR TUESDAY (03/13). PIV S/L. PATIENT CURRENTLY RESTING IN BED; CALL LIGHT IN REACH; BED IN LOWEST POSISTION; BED ALARM ON; WILL CONTINUE TO MONITOR AND ASSESS UNTIL END OF SHIFT.
--- NOTE | 2020-03-12 06:38 | NUR ---
DR. MARQUEZ CONTACTED REGARDING PATIENT'S COMPLAINT OF INDIGESTION IN RIGHT CHEST 10/05; PATIENT REPORTS HE NORMALLY TAKES TUMS AT HOME; ONE TIME ORDER FOR ONE BRITT.
[2020-03-12 09:18] LABS: BASOPHILS ABSOLUTE AUTO 0.04 K/mm3 (0.00-0.23); BASOPHILS PERCENT AUTO 1 % (0-2); EOSINOPHILS ABSOLUTE AUTO 0.21 K/mm3 (0.00-0.68); EOSINOPHILS PERCENT AUTO 3 % (0-6); Hematocrit 35.5 % (37.0-53.0); Hemoglobin 11.4 g/dL (13.5-17.5); IMMATURE GRAN ABSOLUTE AUTO 0.03 K/mm3 (0.00-0.10); IMMATURE GRAN PERCENT AUTO 0 % (0-1); LYMPHOCYTES ABSOLUTE AUTO 1.78 K/mm3 (0.84-5.20); LYMPHOCYTES PERCENT AUTO 21 % (21-46); MONOCYTES ABSOLUTE AUTO 0.67 K/mm3 (0.16-1.47); MONOCYTES PERCENT AUTO 8 % (4-13); Mean Corpuscular HGB Conc 32.1 g/dL (31.5-36.5); Mean Corpuscular Volume 106 fL (80-100); Mean Platelet Volume 12.3 fL (9.1-12.4); NEUTROPHILS ABSOLUTE AUTO 5.79 K/mm3 (1.96-9.15); NEUTROPHILS PERCENT AUTO 68 % (41-73); Platelet Count 282 K/mm3 (150-400); RDW Coefficient Variation 14.2 % (11.7-14.2); RDW Standard Deviation 53.5 fL (35.1-46.3); Red Blood Cell Count 3.35 M/mm3 (4.30-5.90); White Blood Cell Count 8.52 K/mm3 (4.00-11.30)
[2020-03-12 09:39] LABS: Albumin, Blood 2.7 g/dL (3.4-5.0); Albumin/Globulin Ratio 0.6 (0.8-1.8); Bilirubin, Total 0.7 mg/dL (0.1-1.0); Bun/Creatinine Ratio 27.1 (12.0-20.0); Calcium, Blood 8.9 mg/dL (8.5-10.1); Creatinine, Blood 1.44 mg/dL (0.60-1.20); Globulin, Blood 4.7 g/dL (2.2-4.0); Potassium, Blood 3.9 mmol/L (3.5-5.5); Total Protein, Blood 7.4 g/dL (6.4-8.2)
--- NOTE | 2020-03-12 18:40 | NUR ---
SHIFT NOTE PT HAS BEEN UP TO BEDSIDE CHAIR MOST OF THE DAY. HAS BEEN INDEPENDANT IN THE ROOM, AMUBLATED WELL WITH PT. PT A/O X3 ANSWERING QUESTIONS APPROPRIATELY. PT WITH APHAGIA WHICH STS IS HIS BASELINE ALONG WITH RT SIDED WEAKNESS THAT IS ALSO HIS BASELINE FROM A PREVIOUS CVA. RT WRIST SITE IS WELL RECOVERED, NO ACTIVE BLEEDING NOTED. PT IS PREPARED FOR HIS PROCEDURE IN THE AM. PT DENIES CP, STS SOME MILD SOB THIS AM. IV IS PATENT
--- NOTE | 2020-03-13 01:43 | NUR ---
UPDATE PATIENT APPEARED TO SLEEP WELL FOR THE FIRST SEVERAL HOURS OF THE SHIFT, HOWEVER PATIENT REPORTS THAT HE IS HAVING TROUBLE FALLING BACK ASLEEP. ROOM DARKEND MUCH POSSIBLE AND A WARM BLANKET WAS PROVIDED. PATIENT SETTLED BACK INTO BED AND IS ATTEMPTING TO FALL BACK ASLEEP. WILL CONTINUE TO MONITOR PATIENT.
--- NOTE | 2020-03-13 06:32 | NUR ---
SHIFT SUMMARY PATIENT VERY PLEASENT AND COOPERATIVE LAST NIGHT. PATIENT WAS AWAKE FOR SEVERAL HOURS AND APPEARED TO BE SLIGHTLY ANXIOUS ABOUT THE PROCEDURE TODAY AND WAS THINKING ABOUT IT A LOT LAST NIGHT.PATIENT PROVIDED WITH APPROPRIATE SUPPORT. PATIENT THEN APEARED TO SLEEP FOR ANOTHER HOUR OR TWO THIS MORNING. PATIENT CURRENTLY SITTING UP IN A CHAIR WAITING FOR PROCEDURE. PATIENT HAS REPORTED THAT HE HAS BEEN HAVING SOME SHORTNESS OF BREATH THROUGHOUT THE NIGHT THAT WORSENS WHEN HE LAYS DOWN. VITAL SIGNS CHARTED. PATIENT HAS BEEN NPO SINCE 0000 FOR PROCEDURE. WILL COTNINUE TO MONITOR AND REPORT TO ONCOMING RN.
--- NOTE | 2020-03-13 07:35 | NUR ---
PT RECIEVED ONLY ASA AND PLAVIX PER SUPERVISOR [employer] WORK[employer] TEAM REQUEST. PT LEFT AT THIS TIME WITH SUPERVISOR [employer] CREW FOR PROCEDURE. PT WILL BE TRANSFERED TO ICU WHEN PROCEDURE IS COMPLETE, BELONGINGS WILL BE SENT TO ICU
--- NOTE | 2020-03-13 13:35 | NUR ---
TRANSFER NOTE- PT ADMITTED TO ICU FROM SURVEY CREW CHIEF IN BED. PT SLEEPY, ANSWERS QUESTIONS. C/O NASAL STUFFINESS, STATES "HARD TO BREATHE" AT TIMES. REVERSE TRENDELENBERG POSITION. HUMIDITY ADDED TO CANNULA. RESPIRATIONS UNLABORED, LUNGS CLEAR. SATURATIONS STABLE. APICAL REGULAR, LEVOPHED GTT AT 2 MCG/MIN-NOW OFF. LEFT UPPER ARM PIV INTACT. RIGHT RADIAL SITE DI WITH TR BAND, CMS TO FINGERS INTACT, SKIN COOL, DRY. RIGHT FEMORAL SITE AND LEFT FEMORAL SITE DI, SOFT, NO HEMATOMA. NO N/V. BLOOD SUGAR 140. THOMAS PLACED. DR. MARQUEZ HERE-UPDATED. PLANS TO START LASIX GTT. DENIES NUMBNESS/TINGLING FEET, DOES C/O SLIGHT TINGLING SENSATION RIGHT GROIN/PUBIC AREA.
--- NOTE | 2020-03-13 14:31 | NUR ---
PT WITH INCREASING COMPLAINTS OF SOB, DIFFICULTY BREATHING WITH STUFFY NOSE. LUNGS CLEAR. LASIX GTT STARTED. DIFFICULT TO EVALUATE FOR CHEST PAIN, HAS DIFFICULTY COMMUNICATING, STATES DOES HAVE SOME CHEST DISCOMFORT BUT UNABLE TO RATE ON SCALE. NSR LESLEE FIRST DEGREE. NOTIFIED DR. MARQUEZ, HERE NOW. EKG TO BE DONE
[2020-03-13 15:16] LABS: Source, Urine Catheter
--- NOTE | 2020-03-13 15:28 | NUR ---
PT STATES SOME IMPROVEMENT WITH NASAL SPRAY, SATURATIONS STABLE ON ROOM AIR, RESPIRATIONS UNLABORED. SITES DI, TR BAND DEFLATED AND REMOVVED. VSS. ABLE TO TAKE FEW BITES YOGURT WITH ASSISTANCE. UO LOW
--- NOTE | 2020-03-13 15:44 | NUR ---
UPDATE TO DR. MARQUEZ REGARDING LOW URINE OUTPUT. CONTINUE LASIX GTT. WILL CHECK BLADDER SCAN
[2020-03-13 16:09] LABS: Appearance, Urine Clear (Clear); Color, Urine Yellow (P-Yellow); Leukocyte Esterase, Urine Neg (Neg); Nitrite, Urine Neg (Neg); Protein, Urine 1+ (Neg); Specific Gravity, Urine 1.005 (1.003-1.022)
[2020-03-13 16:10] LABS: Bilirubin, Urine Neg (Neg); Blood, Urine Neg (Neg); Glucose Qualitative, Urine Neg (Neg); Ketones, Urine Neg (Neg); Urobilinogen, Urine NORM (Normal)
--- NOTE | 2020-03-13 16:16 | NUR ---
BLADDER SCAN DONE-NO FLUID DETECTED. UO IMPROVED 75 CC/HR. REPOSITIONED WITH HOB UP FOR COMFORT. STILL C/O NASAL DRAINAGE, STATES HAD NASAL DRAINAGE BEFORE PROCEDURE ALSO.
--- NOTE | 2020-03-13 18:45 | NUR ---
DR MARQUEZ HERE-ASSESSED PT, EKG. UO IMPROVED. PT SITTING WITH HOB ELEVATED-LESS COMPLAINTS OF NASAL DRAINAGE. LUNGS CLEAR. SATURATIONS STABLE ON ROOM AIR. COLOR PALE. SKIN W/D. PERIPHERAL SITES INTACT-DRSG RIGHT RADIAL WITH SMALL AMOUNT LEAKAGE, DRSG RIGHT GROIN DI, DRSG LEFT GROIN WITH DRAINAGE, SITES SOFT, NO HEMATOMAS. FOLLOWS DIRECTIONS. STATES NO APPETITE. ABLE TO TAKE WATER. NO N/V
--- NOTE | 2020-03-13 20:45 | NUR ---
PT RESTING IN BED. A/O TO PERSON AND PLACE. HAS EXPRESSIVE APHASIA FROM PREVIOUS STROKE. PT IS WEAK T/O, NO DEFICITS NOTED. PT IS A LITTLE RESTLESS. STATES HE FEELS LIKE HE IS NOT BREATHING WELL. LS CRACKLES IN BASES. PT IS ON LASIX GTT PER DR. MARQUEZ. BOOSTED PT UP IN BED AND SAT HIM UP IN BED AND THAT SEEMS TO HELP. ON RA SPO2 95%. RE-DRESSED R RADIAL ACCESS SITE. SMALL AMT OF BLOOD WITHIN THE DRESSING. NO HEMATOMA. PT HAS R GROIN AND L GROIN ACCESS SITES WELL. L GROIN HAS SMALL AMT OF OLD BLOOD WITHIN DRESSING-NO HEMATOMA. R GROIN DRESSING IS C/D/I-NO HEMATOMA. CALL LIGHT IN REACH. PT YELLS OUT WHEN HE NEEDS SOMETHING.
[2020-03-14 04:07] LABS: BASOPHILS ABSOLUTE AUTO 0.02 K/mm3 (0.00-0.23); BASOPHILS PERCENT AUTO 0 % (0-2); EOSINOPHILS ABSOLUTE AUTO 0.02 K/mm3 (0.00-0.68); EOSINOPHILS PERCENT AUTO 0 % (0-6); Hematocrit 32.7 % (37.0-53.0); Hemoglobin 10.5 g/dL (13.5-17.5); IMMATURE GRAN ABSOLUTE AUTO 0.04 K/mm3 (0.00-0.10); IMMATURE GRAN PERCENT AUTO 0 % (0-1); LYMPHOCYTES ABSOLUTE AUTO 1.58 K/mm3 (0.84-5.20); LYMPHOCYTES PERCENT AUTO 13 % (21-46); MONOCYTES ABSOLUTE AUTO 0.87 K/mm3 (0.16-1.47); MONOCYTES PERCENT AUTO 7 % (4-13); Mean Corpuscular HGB 33.9 pg (26.0-34.0); Mean Corpuscular HGB Conc 32.1 g/dL (31.5-36.5); Mean Corpuscular Volume 106 fL (80-100); Mean Platelet Volume 11.8 fL (9.1-12.4); NEUTROPHILS ABSOLUTE AUTO 9.32 K/mm3 (1.96-9.15); NEUTROPHILS PERCENT AUTO 79 % (41-73); Platelet Count 259 K/mm3 (150-400); RDW Coefficient Variation 15.1 % (11.7-14.2); RDW Standard Deviation 56.1 fL (35.1-46.3); White Blood Cell Count 11.85 K/mm3 (4.00-11.30)
[2020-03-14 04:21] LABS: Bun/Creatinine Ratio 22.6 (12.0-20.0); Calcium, Blood 8.7 mg/dL (8.5-10.1); Creatinine, Blood 1.59 mg/dL (0.60-1.20); Potassium, Blood 4.4 mmol/L (3.5-5.5)
--- NOTE | 2020-03-14 05:36 | NUR ---
SUMMARY PT RESTING IN BED. A LITTLE MORE DISORIENTED AT NIGHT. WILL MAKE COMMENTS THINKING HIS IS HERE, AND SOMETIMES ORIENTED TO SURROUNDINGS THEN OTHER TIMES NOT. DID NOT SLEEP MORE THAN A HOUR ALL NIGHT. WILL USE CALL LIGHT SOMETIMES THEN OTHER TIMES HE YELLS OUT "IS ANYBODY OUT THERE". WAS CONSTANTLY CALLING FOR BEDPAN BUT ONLY HAD A COUPLE BM'S. WAS FRUSTRATED WITH ALL CORDS AND LINES FOR VS MONITORING. PT HAS AUDIBLE WHEEZING WITH EXERTION BUT OTHERWISE NOT HEARD. ON LASIX GTT STILL AT 10MG/HR. URINE OUTPUT SEEMED TO MARKET EDITOR THIS AM. CONTINUOUS EDUCATION ABOUT R RADIAL ACCESS SITE. HAVE ARM BOARD IN PLACE TO TRY TO REMIND PT NOT TO USE R ARM. ACCESS SITE OOZED A SMALL AMT OF BLOOD AND DRESSING WAS CHANGED. NO BLEEDING SINCE. RADIAL PULSES ARE BECOMING MORE PROMINENT. SPO2 PROBE IS ON R HAND AND READING IN THE 90'S. R GROIN AND L GROIN ACCESS SITES REMAIN STABLE AND UNCHANGED. PEDAL PULSES FOUND WITH DOPPLER. NO SIGN OF DISTRESS. BED ALARM ON FOR SAFETY. CALL LIGHT IN REACH.
--- NOTE | 2020-03-14 07:32 | NUR ---
ASSUMED CARE: PT RESTING IN BED WATCHING TV AT THIS TIME. AT BEDSIDE. LASIX GTT AT 10MG/HR AT THIS TIME. RIGHT WRIST AND RIGHT GROIN WITH NO SIGN OF BLEEDING OR HEMATOMA. LEFT GROIN WITH OLD BLEED NOTED BUT NO SIGNS OF BRUISING OR HEMATOMA. CALL LIGHT IN REACH. NSR WITH BBB NOTED
--- NOTE | 2020-03-14 14:23 | NUR ---
DR MARQUEZ CAME TO SEE PT AND ORDERED FOR CHANGE TO PCU STATUS. PLAN IS FOR DC WITH LIFE VEST IN PLACE. AT BEDSIDE FOR THIS INFORMATION. DR MARQUEZ STATES THAT HE WILL CONTINUE MONITORING KIDNEY FUNCTION. ASKED IF NAC WOULD BE BENEFICIAL. DR DECLINED MED AT THIS TIME. BALBIR DRESSING CHANGED TO LEFT GROIN DUE TO OLD DRAINAGE. PT UPRIGHT IN CHAIR. NO FURTHER NEEDS AT THIS TIME.
--- NOTE | 2020-03-14 15:38 | NUR ---
PASSED OFF CARE TO KIRA CANALES. PT REMAINS UP IN CHAIR AT THIS TIME. AT BEDSIDE. KIRA AWARE THAT DR MARQUEZ STATED THAT HE SPOKE WITH [facility] FOR LIFE VEST. NO FURTHER NEEDS OR CONCERNS AT THIS TIME.
--- NOTE | 2020-03-14 15:55 | NUR ---
ASSUMED CARE REPORT FROM PARKER ASHRAF. PATIENT IN CHAIR, REQUESTING ASSISTANCE TO BSC
--- NOTE | 2020-03-14 20:10 | NUR ---
CARE ASSUMED CARE AND REPORT ASSUMED FROM KIRA CANALES. PT UPRIGHT IN BED, ANSWERING QUESTIONS APPROPRIATELY. STATES HE IS TIRED AND READY FOR SLEEP. DENIES ANY PAIN, DENIES CHEST PAIN. R RADIAL SITE CLEAN AND DRY WITH NO SURROUDNING HEMAOTMA; ARM IN ARMBOARD. R AND L GROIN SITES CLEAN AND DRY WITH DRESSING INTACT; NO SURROUNDING HEMATOMA AND SKIN IS SOFT ON BOTH SITES. PEDAL PULSES PRESENT BUT THREADY BILATERALLY; ABLE TO PALPATE. HR 70S; BBB; WIDE COMPLEX. BP WNL. SPO2 97% ON RA. LUNG SOUNDS CLEAR. PT HAD MUCOUSY BM AND RECEIVED LINEN AND GOWN CHANGE. HEPARIN GTT INFUSING AT 17 UNITS PER HOUR PER ORDER. WILL CONTINUE TO MONITOR.
--- NOTE | 2020-03-14 23:22 | NUR ---
REASSESSMENT NO CHANGE SINCE PRIOR ASSESSMENT. PT SLEEPING. DID AWAKEN FOR AWHILE AND HAD 1 BM. VSS. WILL CONTINUE TO MONITOR.
--- NOTE | 2020-03-15 06:31 | NUR ---
SHIFT SUMMARY PT SLEPT OFF/ON DURING NIGHT. HAD FEW MUCOUSY BMS. PT DID HAVE OCCASSIONAL EXPRESSIVE APHASIA. DENIED PAIN ENTIRE SHIFT. PT ABLE TO TURN IN BED. HEPARIN GTT DECREASED TO 16.5 UNITS/HR. R RADIAL, R GROIN, L GROIN SITES ALL STABLE WITH DRESSINGS C/D/I. URINE OUTPUT 400 ML. VSS ENTIRE SHIFT. PT CALLED AT 0100 AND STATED HE FELT SOB AND REQUESTED 5L O2 NC. REPORTED THAT HE SLEEPS WITH 5L O2 AT HOME. WILL GIVE BEDSIDE, HANDOFF REPORT TO DAY RN.
[2020-03-15 08:19] LABS: Bun/Creatinine Ratio 23.8 (12.0-20.0); Calcium, Blood 8.5 mg/dL (8.5-10.1); Creatinine, Blood 1.81 mg/dL (0.60-1.20); Potassium, Blood 3.9 mmol/L (3.5-5.5)
[2020-03-15 08:20] LABS: BASOPHILS ABSOLUTE AUTO 0.05 K/mm3 (0.00-0.23); BASOPHILS PERCENT AUTO 0 % (0-2); EOSINOPHILS ABSOLUTE AUTO 0.07 K/mm3 (0.00-0.68); EOSINOPHILS PERCENT AUTO 1 % (0-6); Hematocrit 33.9 % (37.0-53.0); IMMATURE GRAN ABSOLUTE AUTO 0.05 K/mm3 (0.00-0.10); IMMATURE GRAN PERCENT AUTO 0 % (0-1); LYMPHOCYTES ABSOLUTE AUTO 1.93 K/mm3 (0.84-5.20); LYMPHOCYTES PERCENT AUTO 16 % (21-46); MONOCYTES ABSOLUTE AUTO 0.89 K/mm3 (0.16-1.47); MONOCYTES PERCENT AUTO 7 % (4-13); Mean Corpuscular HGB 34.8 pg (26.0-34.0); Mean Corpuscular HGB Conc 32.4 g/dL (31.5-36.5); Mean Corpuscular Volume 107 fL (80-100); Mean Platelet Volume 12.1 fL (9.1-12.4); NEUTROPHILS ABSOLUTE AUTO 9.09 K/mm3 (1.96-9.15); NEUTROPHILS PERCENT AUTO 75 % (41-73); Platelet Count 261 K/mm3 (150-400); RDW Coefficient Variation 15.5 % (11.7-14.2); RDW Standard Deviation 58.8 fL (35.1-46.3); Red Blood Cell Count 3.16 M/mm3 (4.30-5.90); White Blood Cell Count 12.08 K/mm3 (4.00-11.30)
--- NOTE | 2020-03-15 09:06 | NUR ---
[place] of Care: Care assumed at 0700hr. Patient alert and oriented to self, place, and family. 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 C/o pain to RUQ ABD at shift change, relieved after getting out of bed to chair, no denies pain. Denies dyspnea/SOB, spO2-98% on RA, VSS. Heparin gtt infusing per EMAR, dose confirmed with NOC RN. Powerglide to rt upper arm patent and intact, infusing without difficulty. Willoughby cath patent and intact, draining clear yellow urine. at bedside. Call light in reach, uses appropriately. Will continue to monitor.
[2020-03-15 15:32] LABS: Source, Urine Catheter
[2020-03-15 15:39] LABS: Bilirubin, Urine Neg (Neg); Blood, Urine 5+ (Neg); Glucose Qualitative, Urine Neg (Neg); Ketones, Urine Neg (Neg); Leukocyte Esterase, Urine 1+ (Neg); Nitrite, Urine Neg (Neg); Protein, Urine 2+ (Neg); Urobilinogen, Urine NORM (Normal)
[2020-03-15 17:24] LABS: Appearance, Urine Hazy (Clear); Color, Urine Orange (P-Yellow)
[2020-03-15 17:25] LABS: Red Blood Cells, Urine TNTC /hpf (0-2)
[2020-03-15 17:26] LABS: Bacteria Mod /hpf; Squamous Epithelial Cells Not Seen /hpf (Few); White Blood Cells, Urine Rare /hpf (0-5)
[2020-03-15 17:27] LABS: Granular Casts 25-50 /lpf (0); Mucus Mod (0-Heavy)
[2020-03-15 18:39] LABS: Bun/Creatinine Ratio 22.3 (12.0-20.0); Calcium, Blood 8.6 mg/dL (8.5-10.1); Creatinine, Blood 1.88 mg/dL (0.60-1.20); Magnesium, Blood 2.2 mg/dL (1.6-2.4); Potassium, Blood 3.8 mmol/L (3.5-5.5)
--- NOTE | 2020-03-15 18:51 | NUR ---
Shift Summary: Patient had no significant changes until approx 1245hr. At that time, patient began to c/o sharp chest pain, that radiated to both shoulders and up to his chin. Pain also worsened with deep inspiration. All subjective assessments difficult to obtain as has expressive aphasia. VS remained stable, EKG obtained and call placed to Dr. Hogan, who arrived at the unit approx 1250hr. Informed by Dr. Hogan that pleural pain was suspected, and received orders for PRN tylenol and routine Imdur. These medications appeared to be effective as patient stated "its better", and patient was able to sleep. Patient slept for approx 2hr, then began to complain of stomach pain and heart burn. Call placed to Dr. Hogan and received orders for GI cocktail QID. Patient then began to c/o SOB, lung sounds showed coarse crackles in the bases, but spO2 remained 94-96% on RA. Dr. Hogan to unit at that time. Received orders to D/C Heparin gtt, give 80mg IV lasix followed by lasix gtt at 10mg/hr, and for BMP + BNP lab values. New labs obtained and medications given. Patient appears more comfortable, but states "i dont know" when asked how do you feel/do you have pain". VSS remain stable. Report given to NOC shift RN.
[2020-03-15 21:33] LABS: Source, Urine Catheter
[2020-03-15 21:37] LABS: Bilirubin, Urine Neg (Neg); Blood, Urine 4+ (Neg); Color, Urine Yellow (P-Yellow); Glucose Qualitative, Urine Neg (Neg); Ketones, Urine Neg (Neg); Leukocyte Esterase, Urine 3+ (Neg); Nitrite, Urine Neg (Neg); Protein, Urine Neg (Neg); Specific Gravity, Urine 1.015 (1.003-1.022); Urobilinogen, Urine NORM (Normal)
[2020-03-15 21:45] LABS: Appearance, Urine Hazy (Clear)
[2020-03-15 21:46] LABS: Amorphous Mod (0-Heavy); Bacteria Mod /hpf; Granular Casts 0-2 /lpf (0); Squamous Epithelial Cells Not Seen /hpf (Few)
--- NOTE | 2020-03-15 22:00 | NUR ---
ASSUMED PT CARE FROM PARKER BEAUCHAMP AT 1915 PT RESTING IN BED. APPEARS ALERT AND ORIENTED; HOWEVER, PER REPORT PT HAS BEEN HAVING DIFFICULTY COMMUNICATING NEEDS TO STAFF SECONDARY TO EXPRESSIVE APHASIA. OBTAINED COMMUNICATION BOARD TO HAVE AT BEDSIDE TO HELP WITH COMMUNICATION BARRIER; HOWEVER, PT STILL BECOMES FRUSTRATED AND JUST WAVES HIS HAND DOWN IN A "FORGET IT" TYPE MANNER. WILL CONTINUE TO EDUCATE AND ENCOURAGE PT TO UTILIZE COMMUNICATION BOARD TO PROMOTE SUFFICIENT COMMUNICATION BETWEEN STAFF AND PATIENT. IT APPEARS BASIC NEEDS ARE BEING MET AT THIS TIME; WILL CONTINUE TO REASSESS ON AN ONGOING BASIS. LUNG SOUNDS NOTED TO HAVE BILATERAL INSPIRATORY CRACKLES. PT ON LASIX GTT AT 10MG/HR; URINE OUTPUT IS MINIMAL WITH APPROXIMATELY 30CC/HR. THOMAS CATHETER CHANGED OUT PER DR. MARQUEZ'S ORDERS D/T POSSIBLE CONTAMINATE SAMPLE SENT EARLIER. PLACED 16F COUDE WITH 10CC BALLOON; UA SENT WITH PENDING CULTURE. URINE WAS HAZY YELLOW WITH SEDIMENT NOTED; STERILE TECHNIQUE MAINTAINED T/O PROCEDURE. PT NOTED TO BE IN A NSR WITH BBB; HR 70-80'S. BP'S STABLE, SEE FLOWSHEET. PLACED ATTENDS ON PT D/T SMARS OF MUCOUSY, ORANGE STOOLS. CALL LIGHT WITHIN REACH AND PT ABLE TO DEMONSTRATE APPROPRIATE USAGE OF LIGHT. WAS CALLED IN REGARDS TO BNP LAB RESULT PER HER REQUEST. APPEARS MORE CONCERNED REGARDING KIDNEY FUNCTION IN REGARDS TO PURPOSE OF LASIX GTT. ATTEMPTED TO EDUCATE IN REGARDS TO THE PURPOSE OF THE LASIX GTT SECONDARY TO FLUID OVERLOAD IN RELATION TO HIS HEART FAILURE. VERBALIZES UNDERSTANDING, BUT STILL NEEDS REINFORCEMENT AND CONTINUED EDUCATION REGARDING DISEASE PROCESSES.
--- NOTE | 2020-03-16 02:43 | NUR ---
UPDATE CALL OUT TO DR. JOHNSTON IN REGARDS TO RECEIVING ORDERS FOR AIRVO. PT TOLERATED BIPAP LONG SHE COULD, BUT STARTED ASKING FOR MORE FREQUENT BREAKS. OXYGEN SATURATIONS WEREN'T MAINTAINING ON HIFLOW NC AT 15L. THEREFORE, REQUESTED AIRVO FOR BREAKS INSTEAD. PT IS CURRENTLY AT 50L AND 82% WITH BIOX AT 92%. PT VERY GRATEFUL AND MORE COMFORTABLE. WILL CONTINUE TO MONITOR NEURO STATUS. PT CONTINUING TO COUGH UP COPIOUS AMOUNTS OF THIN WHITE SECRETIONS. LUNG SOUNDS REMAIN COARSE RALES T/O ALL LOBES.
[2020-03-16 04:38] LABS: BASOPHILS ABSOLUTE AUTO 0.01 K/mm3 (0.00-0.23); BASOPHILS PERCENT AUTO 0 % (0-2); EOSINOPHILS PERCENT AUTO 0 % (0-6); Hematocrit 32.7 % (37.0-53.0); Hemoglobin 10.7 g/dL (13.5-17.5); IMMATURE GRAN ABSOLUTE AUTO 0.09 K/mm3 (0.00-0.10); IMMATURE GRAN PERCENT AUTO 1 % (0-1); LYMPHOCYTES ABSOLUTE AUTO 1.55 K/mm3 (0.84-5.20); LYMPHOCYTES PERCENT AUTO 9 % (21-46); MONOCYTES ABSOLUTE AUTO 1.17 K/mm3 (0.16-1.47); MONOCYTES PERCENT AUTO 7 % (4-13); Mean Corpuscular HGB 34.3 pg (26.0-34.0); Mean Corpuscular HGB Conc 32.7 g/dL (31.5-36.5); Mean Corpuscular Volume 105 fL (80-100); Mean Platelet Volume 12.1 fL (9.1-12.4); NEUTROPHILS ABSOLUTE AUTO 13.89 K/mm3 (1.96-9.15); NEUTROPHILS PERCENT AUTO 83 % (41-73); NRBC ABSOLUTE 0.03 K/mm3 (0.00-0.02); NRBC Auto 0.2 /100 WBC (0.0-0.2); Platelet Count 246 K/mm3 (150-400); RDW Coefficient Variation 15.1 % (11.7-14.2); Red Blood Cell Count 3.12 M/mm3 (4.30-5.90); White Blood Cell Count 16.71 K/mm3 (4.00-11.30)
[2020-03-16 05:06] LABS: Bun/Creatinine Ratio 22.8 (12.0-20.0); Calcium, Blood 8.2 mg/dL (8.5-10.1); Creatinine, Blood 1.93 mg/dL (0.60-1.20); Potassium, Blood 3.7 mmol/L (3.5-5.5)
--- NOTE | 2020-03-16 06:30 | NUR ---
END OF SHIFT SUMMARY NO SIGNIFICANT CHANGES NOTED T/O SHIFT. LASIX GTT REMAINED AT 10MG/HR T/O SHIFT WITH A TOTAL OF 400CC URINE OUTPUT. URINE REMAINS CLOUDY AND YELLOW WITH SEDIMENT NOTED. PT REMAINED IN NSR WITH AV BLOCK AND BBB; HR 70-80'S. BP'S STABLE, SEE FLOWSHEET. 5L VIA NC T/O NIGHT PER PT'S BASELINE AT HOME; BIOX MAINTAINED MID TO HIGH 90'S. PT HAD TWO MUCOUSLY, ORANGE SMEARS THIS SHIFT. CALL LIGHT REMAINS WITHIN REACH; PT IS ABLE TO DEMONSTRATE APPROPRIATE USAGE OF CALL LIGHT. WILL CONTINUE TO MONITOR UNTIL REPORT IS HANDED OFF TO ONCOMING RN.
--- NOTE | 2020-03-16 08:00 | NUR ---
[place] of Care: Care assumed at 0700hr. Patient sleeping but easily roused to verbal stimuli, oriented to self and place. Denied pain/ discomfort at shift change, but now c/o heart burn/indigestion. PRN zofran and GI cocktail given, will monitor for effect. VSS, spO2-98% on RA, denies dyspnea/SOB. Heart rhythm continues to show sinus with 1st degree AV block and BBB, rate- 60's, BP stable. CBG this morning of 40. Ewing juice given and approx 25% of breakfast consumed, will re-assess CBG at approx 1000hr. Power-glide to HAY patent and intact. Willoughby cath patent and intact, draining clear yellow urine. Call light in reach. Makes needs known, but communication remains difficulty r/t expressive aphasia. at bedside at this time. Will continue to monitor.
--- NOTE | 2020-03-16 18:31 | NUR ---
Shift Summary: No significant changes throughout shift. Patient slept for majority of shift, but has been up to chair for the last 2-3hr. Transferred to chair with OT without difficulty. VS remain stable, spO2-96-98% on RA while awake. SpO2 occasionally decreased to mid 80's while sleeping, 2L/NC effective to keep spO2- 92-96%. Willoughby cath remains patent and intact, draining clear yellow urine. Increased urine output compared to yesterday, approx 1L this shift. Power-glide to HAY remains patent and intact, infusing without difficulty. Upright in chair at this time, call light in reach, makes needs known. Will continue to monitor until report to NOC shift RN.
--- NOTE | 2020-03-16 19:54 | NUR ---
PATIENTS HOME FOR THE NIGHT. PATIENT BACK TO BED FROM CHAIR WITH WALKER AND NEEDING VERBAL DIRECTIONS. INCONT OF SOFT BROWN STOOL, ATTENDS IN PLACE. THOMAS DRAINING HAZY YELLOW URINE. PATIENT SOB WITH ACTIVITY RECOVERING WELL ONCE IN BED, 2L/NC IN PLACE, MOIST COUGH WITH CLEAR TO WHITE SPUTUM. NO C/O CHEST PAIN AT THIS TIME. MONITOR SHOWING SINUS WITH BBB. EXPRESSIVE APHASIA CONTINUES, DOES WELL WITH HAND GESTURES ON MAKING NEEDS KNOWN. SCATTERED BRUISING SEEN. RIGHT WRIST CONTINUES WITH BRUISING. RIGHT GROIN APPEARS HEALED. LEFT GROIN WITH CLEAR DRESSING INTACT.
--- NOTE | 2020-03-16 23:09 | NUR ---
WHILE SLEEPING BIOX DOWN TO 88%, OXYGEN INCREASED TO 3L/NC
[2020-03-17 04:38] LABS: BASOPHILS ABSOLUTE AUTO 0.02 K/mm3 (0.00-0.23); BASOPHILS PERCENT AUTO 0 % (0-2); EOSINOPHILS ABSOLUTE AUTO 0.03 K/mm3 (0.00-0.68); EOSINOPHILS PERCENT AUTO 0 % (0-6); Hematocrit 31.3 % (37.0-53.0); Hemoglobin 10.3 g/dL (13.5-17.5); IMMATURE GRAN ABSOLUTE AUTO 0.07 K/mm3 (0.00-0.10); IMMATURE GRAN PERCENT AUTO 1 % (0-1); LYMPHOCYTES ABSOLUTE AUTO 1.25 K/mm3 (0.84-5.20); LYMPHOCYTES PERCENT AUTO 10 % (21-46); MONOCYTES ABSOLUTE AUTO 0.85 K/mm3 (0.16-1.47); MONOCYTES PERCENT AUTO 7 % (4-13); Mean Corpuscular HGB 34.2 pg (26.0-34.0); Mean Corpuscular HGB Conc 32.9 g/dL (31.5-36.5); Mean Corpuscular Volume 104 fL (80-100); NEUTROPHILS ABSOLUTE AUTO 9.83 K/mm3 (1.96-9.15); NEUTROPHILS PERCENT AUTO 82 % (41-73); NRBC ABSOLUTE 0.03 K/mm3 (0.00-0.02); NRBC Auto 0.2 /100 WBC (0.0-0.2); Platelet Count 224 K/mm3 (150-400); RDW Coefficient Variation 15.3 % (11.7-14.2); RDW Standard Deviation 57.2 fL (35.1-46.3); Red Blood Cell Count 3.01 M/mm3 (4.30-5.90); White Blood Cell Count 12.05 K/mm3 (4.00-11.30)
[2020-03-17 04:55] LABS: Albumin, Blood 2.2 g/dL (3.4-5.0); Albumin/Globulin Ratio 0.5 (0.8-1.8); Bilirubin, Total 0.5 mg/dL (0.1-1.0); Bun/Creatinine Ratio 23.1 (12.0-20.0); Calcium, Blood 8.1 mg/dL (8.5-10.1); Creatinine, Blood 2.12 mg/dL (0.60-1.20); Globulin, Blood 4.3 g/dL (2.2-4.0); Magnesium, Blood 2.5 mg/dL (1.6-2.4); Potassium, Blood 3.4 mmol/L (3.5-5.5); Total Protein, Blood 6.5 g/dL (6.4-8.2)
--- NOTE | 2020-03-17 05:52 | NUR ---
SUMMARY PATIENT SLEEPING OFF AND ON T/O NIGHT, AWAKENS TO SLIGHT STIMULI, ASSISTING WITH REPOSITIONING IN BED. NO C/O PAIN T/O NIGHT. WHILE SLEEPING HAVING SLEEP APNEA WITH SHORT DROP IN SATS TO 88% OXYGEN INCREASED TO 3L/NC AND SATS REMAINING >90%. MONITOR CONTINUES TO SHOW WIDE BBB WITH OCCASIONAL PVC.
--- NOTE | 2020-03-17 09:10 | NUR ---
IS IN EARLY TO VISIT PT. PT IS A/O TO CARE. IS C/O URINARY CATH PAIN, WHICH WAS RELIEVED WTH ADJUSTMENT. CBG NOTED AT 146 AND WILL REPORT FOR MEDICATION AJUSTMENT. VS HOLDING STABLE AT THIS TIME AND AM MEDS GIVEN NOTED.
[2020-03-17] MEDS ORDERED: SYMBICORT 16010.2 GM INH (09:43)
--- NOTE | 2020-03-17 11:31 | NUR ---
PT IS COMPLAINING OF SHORTNESS OF BREATH, PT IS CLAMMY, PAIN NAUSEOS. MEDICATED PT WIT ZOFRAN. PT IS IN AFIB WITH RVR CALLED DR. CRAIG REGARDING THIS. ORDERS RECEIVED. CALLED DR. MARQUEZ WELL INFORMING HIM REGARDING PT'S SYMPTOMS AND ORDERS RECEIVED. EKG WAS DONE.
[2020-03-17 12:14] LABS: International Normalized Ratio 1.5; Prothrombin Time Results 15.7 Sec (9.7-11.5)
--- NOTE | 2020-03-17 12:50 | NUR ---
Long conversation with Jim and his , Leni, this morning. During the conversation Jim's heart rate increased to the 120-140s and he complained of chest pressure, mid-epigastric 7/10 without radiation of pain. He also c/o SOB and nausea. Nursing notified and this card writer hand remained at the bedside while nursing medicated pt for nausea, did an EKG and medicated for his afib with RVR. Jim states that he wants to remain a full code at this time, be able to go home and "see how it goes." Disease process education given and explained to pt and that if he was resusitated that if he recovered he may have neurological or physical deficits and his underlying chronic issues would remain. Dr. Hogan visited with pt and during my visit this morning. Jim stated that the chest discomfort he had this morning was "Not enough to make me want to give up yet." He has a POLST form that is full code with limited treatment that has not been signed by his PCP. He reports his PCP, Dr. Hassan, who has been his PCP for 35 years told him to consider hospice. Leni reports they were not ready to talk about hospice when Dr. Hassan suggested it. Encouraged them to consider quality of life vs. quantity of life and to take into consideration that his heart condition will likely continue to deteriorate despite the intervention of his recent stent placement. Jim stated he was starting to get a little relief from having his heart rate slow back down into the 60-70s. Will allow him some time to rest and to talk with his about his wishes re: CPR and goals of care. PC will plan to return this afternoon to follow up with pt.
--- NOTE | 2020-03-17 13:54 | NUR ---
1354-DR. MARQUEZ SPOKE PT'S DAUGHTER MONO. PT IS NOW DNR/DNI. WILL PLACE ORDER IN.
[2020-03-17 14:02] LABS: PCO2 Arterial 29.4 mmHg (35-45); PO2 Arterial 116 mmHg (80-100); pH Blood Arterial 7.35 (7.35-7.45)
--- NOTE | 2020-03-17 14:02 | NUR ---
DR MARQUEZ/PT DECOMPENSATION AMIODARONE INITIATED-RHYTHM CHANGED FROM AFIB RVR TO A JUNCTIONAL RHYTHM WITH SIGNIFICANT PAUSES IN THE 40-50S. 1323-DR MARQUEZ ARRIVED. 1324-12 LEAD EKG OBTAINED 1325- 0.25MG ATROPINE ORDERED, GIVEN AT 1327 AND LEVOPHED INITIATED AT 6MCG/MIN 1331-NS BOLUS ORDERED 1333-LEVO AT 10MCG/MIN 1335-RT CALLED FOR BIPAP PLACEMENT & DR KIRAN CONSULTED FOR POSSIBLE INTUBATION. 1342-#1 KCL INITIATED. 1345-DR MARQUEZ TALKING WITH . BIPAP PLACED AND DR KIRAN ARRIVES. 1351-DR MARQUEZ CALLING DAUGHTER MONO-DECISION TO MAKE PT DNR/DNI STATUS, AND PALLIATIVE CARE CALLED.
--- NOTE | 2020-03-17 15:16 | NUR ---
AT APPROX 1230 DR MARQUEZ WAS AGAIN NOTIFIED OF PT AFIB-RVR AND PT INC SOB AND LOW BP. PT ASKING FOR MORE 02 AND CHANGED TO OXYMIZER THEN WHEN DR MARQUEZ ARRIVED CHANDGED TO BIPAP. PT EXPRESSED SOME SL RELIEF. AMIODARONE BOLUS STARTED APPROX 1250-55 AND AT THE END OF THE INFUSION, PT LI AND BP CONT TO BE LOW. ATROPINE AND THEN LEVOPHED GTT STARTED NOTED. BP WAS IMPORVING AND THEN AT APPROX 1400 PT STOPPED BREATHING AND AGIAN BRADYED DOWN AND BEDCAME PULSESS. TOD WAS PRONOUNCED AT 1409. THE WAS IN THE ROOM ALL THE TIME AND STAYED IN THE ROOM FOR A PERIOD OF TIME. CHAPLAIN Raheem VICTORIA WAS IN ROOM TO ASSIST WITH THE FAMILY. RADHA CRAIG, AND ALMA WERE CALLED AND NOTIFIED RE T.O.D.
--- NOTE | 2020-03-17 16:04 | NUR ---
Called to the ICU at 1347 by ICU head charger who states pt continues to deteriorate. Arrived in ICU and Dr. Hogan and Dr. Robles are at the bedside along with vinnie Farrar, RT and three ICU RNs. Mac is now on bipap and not doing well. Dr. Hogan states he just spoke to Mac's dtr who agrees that Mac should now be a DNR/DNI. Jim and his are in agreement with the change in code status. He is looking more pale, skin is cool to touch. He is pulling at the bipap mask and stating that it is uncomfortable. RT adjusted the bipap mask. Leni at bedside, holding Mac's hand. ABGs drawn and charge nurse re-entered the room to perform another EKG. Mac started to become more restless pulling at the mask and then became unresponsive. Heart rate trending downward. Pt's RN Peewee, Dr. Robles and head charger at bedside. TOD at 1409. chaplain Tami, at bedside to provide support for Leni. Jim's dtr is on her way to the hospital.
--- NOTE | 2020-03-17 16:07 | NUR ---
IVF CHANGED TO D5NS AT 150 AND INSULIN GTT DEC TO 5 UNITS AND WILL FOLLOW. PT CONT TO C/O SHOULDER AND BACK PAIN. PT COACHED TO MOVE MORE TO MINIMIZE PAIN ISSUES.
--- NOTE | 2020-03-17 16:24 | NUR ---
Initial Spiritual care note: Present with family at TO. Provided prayer and career counselor to good effect. Spouse present at TO, pt's children and grand-daughter arrived shortly afterwards--all in various stages of shock/grief. Provided calm presence and facilitated story-telling. Mac passed peacefully thanks to excellent nursing care and attention. Family selected [facility] for arrangements.
--- NOTE | 2020-03-17 16:38 | NUR ---
PT SENT TO [facility] AT APPROX 1625. NO PT BELONGINGS WERE IN THE ROOM THAT WAS ALSO CLEARED WITH CAROLINE Landry RN.
== END 2020-03-17 14:09 | DRG 246 ==
LOC: ER 00:09 → ICUE 00:52 → ICUW 00:52 → PCU 00:52 → ICUE 01:41 → PCU 03-11 05:17 → ICUW 03-13 13:07
PROVIDERS: Emergency Medicine; Internal Medicine; Internal Medicine Interventional Cardiology; ADMIT Internal Medicine Interventional Cardiology
PROC: 5A09457 Assistance with Respiratory Ventilation, 24-96 Consecutive Hours, Continuous Positive Airway Pressure (ICD-10-PCS; 2020-03-08)
PROC: 4A023N7 Measurement of Cardiac Sampling and Pressure, Left Heart, Percutaneous Approach (ICD-10-PCS; principal; 2020-03-13)
PROC: 027337Z Dilation of Coronary Artery, Four or More Arteries with Four or More Drug-eluting Intraluminal Devices, Percutaneous Approach (ICD-10-PCS; 2020-03-13)
PROC: B2111ZZ Fluoroscopy of Multiple Coronary Arteries using Low Osmolar Contrast (ICD-10-PCS; 2020-03-13)
DX: I13.0 Hypertensive heart and chronic kidney disease with heart failure and stage 1 through stage 4 chronic kidney disease, or unspecified chronic kidney disease (principal); I50.33 Acute on chronic diastolic (congestive) heart failure; I21.19 ST elevation (STEMI) myocardial infarction involving other coronary artery of inferior wall; N17.9 Acute kidney failure, unspecified; N18.3 Chronic kidney disease, stage 3 (moderate); R57.0 Cardiogenic shock; E11.22 Type 2 diabetes mellitus with diabetic chronic kidney disease; Z79.4 Long term (current) use of insulin; Z87.891 Personal history of nicotine dependence; I69.920 Aphasia following unspecified cerebrovascular disease; E11.649 Type 2 diabetes mellitus with hypoglycemia without coma; T50.8X5A Adverse effect of diagnostic agents, initial encounter; Y92.238 Other place in hospital as the place of occurrence of the external cause; I48.0 Paroxysmal atrial fibrillation; Z20.828 Contact with and (suspected) exposure to other viral communicable diseases
CPT/HCPCS: 33990; 36415; 36600; 51702; 51703; 71045; 71046; 75716; 75774; 76705; 76937; 80048; 80053; 80061; 81001; 82550; 82553; 82803; 82947; 83036; 83735; 83880; 84145; 84484; 85025; 85027; 85347; 85610; 85730; 86850; 86900; 86901; 87086; 92978; 92979; 93005; 93010; 93458; 94640; 94760; 96374; 97110; 97112; 97163; 97166; 97168; 97530; 97535; 99152; 99153; 99285-25; A9270; A9270-GY; C1725; C1751; C1753; C1760; C1769; C1874; C1887; C1894; C8929; C9113; C9600; C9601; C9606; J0282; J0461; J0696; J1644; J1650; J1940; J2250; J2405; J2704; J3010; J3480; J7030; J7040; J7050; J7060; J7120; Q9957; Q9967; U0002